=== PATIENT | male | born 1940 | race Caucasian/White ===

== ENCOUNTER → 2019-10-07 | Outpatient (CLI) | payer MEDICARE, BC ==
[~2019-10-07] MED LIST: ALTACE10 MG PO; AMLODIPINE BESYL5 MG PO; AXIRON30 MG/1.5 TOP; CARVEDILOL12.5 MG PO; COLCRYS0.6 MG PO; HYDROCODONE/ACET PO; LANSOPRAZOLE30 MG PO; LEVEMIR100 UNIT/1 SQ; MAGNESIUM OXID400 MG PO; NOVOLOG MI100 UNITS/ SQ; ULORIC40 MG PO; ULTRAM50 MG PO
--- NOTE | 2019-10-07 19:51 | Diagnostic Imaging Report ---
Parathyroid Scan with SPECT Reason for exam: Hyperparathyroidism Radiopharmaceutical: Tc-99m sestamibi 26 mCi After intravenous administration of the radiopharmaceutical, immediate and 2-hour planar images of the neck and upper chest were obtained. Tomographic images of the neck and upper chest were also obtained following the initial planar images. Distribution of tracer activity appears physiologic throughout the neck and upper chest on the planar and tomographic images. No focal areas of increased tracer accumulation are identified. On the delayed planar images, washout of tracer from the thyroid is complete with no focal areas of persistent tracer activity. Impression: No enlarged hypermetabolic parathyroid glands are identified. Signed by: Dr. Martha Hannah M.D. on 10/07/2019 7:48 PM
== END ==
LOC: NM 09:26
PROVIDERS: ATTEND Urology
DX: E21.3 Hyperparathyroidism, unspecified (principal)
CPT/HCPCS: 78071; A9500

== ENCOUNTER → 2019-11-06 | Day surgery (SDC) | payer MEDICARE, BC ==
[2019-11-04 16:08] LABS: BASOPHILS % 0.6 % (0.0-1.0); EOSINOPHILS # (AUTO) 0.3 (0.0-0.4); HEMATOCRIT 40.4 % (38.2-49.6); HEMOGLOBIN 13.1 g/dL (14.0-18.0); LYMPHOCYTES # (AUTO) 2.8 (1.0-3.2); LYMPHOCYTES % 41.8 % (18.0-39.1); MEAN CORPUSCULAR HEMOGLOBIN 29.4 pg (28-32); MEAN CORPUSCULAR HGB CONC 32.4 g/dL (31-35); MEAN CORPUSCULAR VOLUME 90.8 fL (81-99); MONOCYTES # (AUTO) 0.6 (0.2-0.8); MONOCYTES % 8.7 % (4.4-11.3); NEUTROPHILS # (AUTO) 2.9 (2.1-6.9); NEUTROPHILS % 43.4 % (38.7-80.0); PLATELET COUNT 100 x10e3/uL (140-360); RED BLOOD COUNT 4.45 x10e6/uL (4.3-5.7); RED CELL DISTRIBUTION WIDTH 13.2 % (11.7-14.4)
--- NOTE | 2019-11-04 16:18 | Diagnostic Imaging Report ---
EXAMINATION: CHEST 2 VIEWS INDICATION: Pre-operative COMPARISON: None FINDINGS: LINES/TUBES:None LUNGS:The lungs are well-inflated. No focal consolidation or pulmonary edema. PLEURA:No pleural effusion or pneumothorax. MEDIASTINUM:The cardiomediastinal silhouette appears normal in size and shape. BONES/SOFT TISSUES:No acute osseous injury. ABDOMEN:No free air under the diaphragm. IMPRESSION: No focal pneumonia or pulmonary edema. Signed by: Vijaya Soriano MD on 11/04/2019 4:15 PM
--- NOTE | 2019-11-04 16:20 | Diagnostic Imaging Report ---
Exam: KUB - 2 views Indication: Preoperative Comparison: CT abdomen pelvis of 09/04/2019 Findings: No radiographically apparent renal calculi. Nonobstructive bowel gas pattern. No free air. Status post cholecystectomy. No acute osseous injury. Phleboliths in the pelvis. Degenerative changes of the visualized spine and both hip joints. Radiopaque structure overlying the right lower abdomen just above the right iliac bone may be an intervally placed implanted device versus an object external to the patient. Impression: No radiographically apparent renal calculi. Signed by: Vijaya Soriano MD on 11/04/2019 4:17 PM
[2019-11-04 16:51] LABS: CALCIUM 9.1 mg/dL (8.4-10.2); CREATININE, SERUM 2.57 mg/dL (0.72-1.25)
[~2019-11-06] MED LIST changes: +B&O 60MG R/S 60 MG SUPP PR ONE; +CEFTRIAXONE SOD 1 GM/NS 50 ML 50 ML IV ONE; +FLOMAX0.4 MG PO; +IOPAMIDOL 610MG/1ML 300 MG/ML VIAL IV ONE; +LIDOCAINE HCL 2% LOCAL INJ 5 ML SDV VIAL INJ ONE; +ONDANSETRON HCL INJ 2MG/ML 2ML 2 MG/ML VIAL ONE; +POTASSIUM CITR10 MEQ PO; +PROPOFOL IV EMULSION 10 MG/ML 20 ML VIAL ONE; +SEVOFLURANE INHAL SOLN 250 ML PEN BTL ONE
--- OUTSIDE RECORDS SUMMARY | 2019-11-06 06:07 | XMS REPORT ---
[facility] Address Unknown Phone Unavailable Care Team Providers Care [employer] Name Role Phone EMELINA MAHER Unavailable Unavailable Problems This patient has no known problems. Allergies, Adverse Reactions, Alerts This patient has no known allergies or adverse reactions. Medications This patient has no known medications. Results Test Description Test Time Test Comments Text Results Atomic Results Result Comments ABDOMEN-1VIEW (KUB) 2019-11-04 16:15:00 [place] [address] Patient Name: CLARENCE DEJESUS MR #: [id number] : 1940 Age/Sex: 79/M Req #: [id number] Adm Physician: Ordered by: EMELINA MAHER MD Report #: [id number] Location: OR Room/Bed: Procedure: [id number] DX/ABDOMEN-1VIEW (KUB) Exam Date: 11/04/19 Exam Time: 1550 REPORT STATUS: Signed Exam: KUB - 2 views Indication: Preoperative Comparison: CT abdomen pelvis of 09/04/2019 Findings: No radiographically apparent renal calculi. Nonobstructive bowel gas pattern. No free air. Status post cholecystectomy. No acute osseous injury. Phleboliths in the pelvis. Degenerative changes of the visualized spine and both hip joints. Radiopaque structure overlying the right lower abdomen just above the right iliac bone may be an intervally placed implanted device versus an object external to the patient. Impression: No radiographically apparent renal calculi. Signed by: Chip Oden MD on 11/04/2019 4:17 PM Dictated By: CHIP ODEN MD 16 Transcribed By: ADRIANO on 11/04/191616 COPY TO: EMELINA MAHER MD CHEST 2 VIEWS 2019-11-04 16:14:00 [place] [address] Patient Name: CLARENCE DEJESUS MR #: [id number] : 1940 Age/Sex: 79/M Req #: [id number] Adm Physician: Ordered by: EMELINA MAHER MD Report #: [id number] Location: OR Room/Bed: Procedure: [id number] DX/CHEST 2 VIEWS Exam Date: 11/04/19 Exam Time: 1550 REPORT STATUS: Signed EXAMINATION: CHEST 2 VIEWS INDICATION: Pre-operative COMPARISON: None FINDINGS: LINES/TUBES:None LUNGS:The lungs are well-inflated. No focal consolidation or pulmonary edema. PLEURA:No pleural effusion or pneumothorax. MEDIASTINUM:The cardiomediastinal silhouette appears normal in size and shape. BONES/SOFT TISSUES:No acute osseous injury. ABDOMEN:No free air under the diaphragm. IMPRESSION: No focal pneumonia or pulmonary edema. Signed by: Chip Oden MD on 11/04/2019 4:15 PM Dictated By: CHIP ODEN MD 14 Transcribed By: ADRIANO on 11/04/191614 COPY TO: EMELINA MAHER MD PARATHYROID IMAGING W SPECT 2019-10-07 19:42:00 [facility] [address] [place] [address] Patient Name: CLARENCE DEJESUS MR #: [id number] : 1940 Age/Sex: 79/M Req #: [id number] Adm Physician: Ordered by: EMELINA MAHER MD Report #: [id number] Location: [place] Room/Bed: Procedure: [id number] NM/PARATHYROID IMAGING W SPECT Exam Date: Exam Time: REPORT STATUS: Signed Parathyroid Scan with SPECT Reason for exam: Hyperpara thyroidism Radiopharmaceutical: Tc-99m sestamibi 26 mCi After intravenous administration of the radiopharmaceutical, immediate and 2-hour planar images of the neck and upper chest were obtained. Tomographic images of the neck and upper chest were also obtained following the initial planar images. Distribution of tracer activity appears physiologic throughout the neck and upper chest on the planar and tomographic images. No focal areas of increased tracer accumulation are identified. On the delayed planar images, washout of tracer from the thyroid is complete with no focal areas of persistent tracer activity. Impression: No enlarged hypermetabolic parathyroid glands are identified. Signed by: Dr. William Hannah M.D. on 10/07/2019 7:48 PM Dictated By: WILLIAM HANNAH MD 47 Transcribed By: ADRIANO on 10/07/191947 COPY TO: EMELINA MAHER MD CT ABDOMEN/PELVIS WO 2019-09-04 16:09:00 [place] [address] Patient Name: CLARENCE DEJESUS MR #: [id number] : 1940 Age[facility]: 79[id number] Req #: [id number] Adm Physician: Ordered by: EMELINA MAHER MD Report #: [id number] Location: [place] Room/Bed: Procedure: [id number] CT/CT ABDOMEN/PELVIS WO Exam Date: 09/04/19 Exam Time: 1125 REPORT STATUS: Signed EXAM: CT Abdomen and Pelvis WITHOUT intravenous contrast INDICATION: Chronic kidney disease COMPARISON: Nuclear medicine renal scan earlier the same day TECHNIQUE: Abdomen and pelvis were scanned utilizing a multidetector helical scanner from the lung base to the pubic symphysis without administration of IV contrast. Coronal and sagittal reformations were obtained. IV CONTRAST: None ORAL CONTRAST: Water COMPLICATIONS: None RADIATION DOSE: Total DLP: 964 mGy*cm Dose modulation, iterative reconstruction, and/or weight based adjustment of the mA/kV was utilized to reduce the radiation dose to as low as reasonably achievable. FINDINGS: LOWER THORAX: Mild lingular subsegmental atelectasis. Right lower lobe calcified granuloma. Scattered coronary artery atherosclerotic calcifications HEPATOBILIARY: No focal liver lesions. Status post cholecystectomy. SPLEEN: No splenomegaly. PANCREAS: No focal masses or ductal dilatation. ADRENALS: No adrenal nodules. KIDNEYS/URETERS: No hydronephrosis or renal calculi on the right. The left kidney is severely atrophic. 4 mm left midpole renal calculus. No hydroureter. PELVIC ORGANS/BLADDER: Unremarkable. PERITONEUM / RETROPERITONEUM: No free air or fluid. LYMPH NODES: No lymphadenopathy. VESSELS: Moderate atherosclerotic calcifications of the nonaneurysmal abdominal aorta and major branches. GI TRACT: No abnormal bowel thickening. No bowel obstruction. Normal appendix. BONES AND SOFT TISSUES: No acute osseous injury. No suspicious lytic or blastic lesions. Minimal anterolisthesis at L4- 5. IMPRESSION: Severely atrophic left kidney. Nonobstructive left renal calculus. No renal calculus or hydronephrosis on the right. Atherosclerotic arterial calcifications including of the coronary arteries. Signed by: Chip Oden MD on 09/04/2019 4:13 PM Dictated By: CHIP ODEN MD 12 Transcribed By: ADRIANO on 09/04/191612 COPY TO: EMELINA MAHER MD RENAL SCAN W/LASIX 2019-09-04 12:43:00 [place] [address] Patient Name: CLARENCE DEJESUS MR #: [id number] : 1940 Age/Sex: 79/M Req #: [id number] Adm Physician: Ordered by: EMELINA MAHER MD Report #: [id number] Location: [place] Room/Bed: Procedure: [id number] NM/RENAL SCAN W/LASIX Exam Date: 09/04/19 Exam Time: 1015 REPORT STATUS: Signed Renal Scan with Lasix Washout Clinical information: CKD; UTI Technique: Following intravenous administration of 10 mCi of Tc-99m MAG3, dynamic images of the kidneys in the posterior projection were obtained through 40 minutes. Lasix 40 mg was administered intravenously at 10 minutes post injection of the tracer. Report: Left kidney: Perfusion of the left kidney is prompt. 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 Extraction of tracer from the blood pool by the remaining renal parenchyma is mildly decreased. Clearance of tracer from the renal parenchyma begins promptly but is not quite complete by the end of the study. The pelvicalyceal system is not dilated although the renal pelvis is slightly prominent. Physiological pooling of tracer is seen within the pelvicalyceal system. Some but minimal net drainage of tracer from the pelvicalyceal system is seen prior to administration of Lasix. Washout of tracer from the pelvicalyceal system following administration of Lasix is adequate with a T-1/2 of 14 minutes (normal less than 15 minutes). No significant stasis of tracer is seen within the left ureter. Right kidney: Perfusion to the right kidney is prompt. The right kidney has a reniform shape and is normal to mildly reduced in size. Extraction of tracer by the renal parenchyma is mildly decreased. Clearance of tracer from the renal parenchyma begins promptly but is not complete by the end of the study. The pelvicalyceal system is not dilated. Physiologic pooling of tracer is seen within the pelvicalyceal system. Drainage of tracer from the pelvicalyceal system is adequate prior to administration of Lasix. Washout of tracer from the pelvicalyceal system following administration of Lasix is rapid with a T- 1/2 of 5 minutes (normal less than 15 minutes). No significant stasis of tracer is seen within the right ureter. Differential renal function: The left kidney contributes 30% of total renal function and the right kidney cont ributes 70% (normal 43-57%). Impression: 1. 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 Mild medical renal disease is present. No hydronephrosis is present. No physiologically significant obstruction of the renal collecting system is present. 2. Mild medical renal disease is present in the right kidney. No hydronephrosis is present. No physiologically significant obstruction of the renal collecting system is present. Signed by: Dr. William Hannah M.D. on 09/04/2019 1:06 PM Dictated By: WILLIAM HANNAH MD 1302 Transcribed By: ADRIANO on 09/04/19 1305 COPY TO: EMELINA MAHER MD
[2019-11-06 11:00] VITALS: BP 138/81
--- NOTE | 2019-11-22 19:36 | Operative Report ---
DATE OF PROCEDURE: 11/06/2019 SURGEON: Kwasi Menendez MD PREOPERATIVE DIAGNOSES: 1. Left nephrolithiasis. 2. Urinary tract infections. POSTOPERATIVE DIAGNOSES: 1. Left nephrolithiasis. 2. Urinary tract infections. OPERATIONS PERFORMED: 1. Left-sided extracorporeal shockwave lithotripsy (separate procedure performed for the left nephrolithiasis). 2. Cystourethroscopy with bilateral ureteral catheterization and retrograde ureteropyelography (separate procedure performed for the urinary tract infections). 3. Interpretation of retrograde ureteropyelography. ANESTHESIA: General. CLINICAL SUMMARY: Kwasi Angel is a 79-year-old man with left renal atrophy. He has chronically enlarged left renal pelvis. He also has a stone in the left kidney. He is aware of the risks of bleeding, infection, injury to adjacent structures, need for additional procedures and the increased risk of anesthesia at his age. He understood all these risks and elected to proceed. OPERATIVE PROCEDURE IN DETAIL: Informed consent was verified. Kwasi Angel was properly identified, taken to the operating room, placed on the lithotripsy table in the supine position. Anesthesia was uneventfully begun. The patient's left stone was localized with biplanar fluoroscopy. Prior to the lithotripsy the patient had an approximately 10 second run of asystole. This was resolved by the anesthesiologist and after stabilization, the anesthesiologist felt it was safe to continue and that asystole may be a reaction to the anesthetic medications and the induction of anesthesia, which seems to now be stabilized. Therefore, since the patient is already under anesthesia and is now stable we elected to proceed. The patient's stone was localized with biplanar fluoroscopy. A total of 3000 shocks were delivered with fragmentation noted. The patient was then carefully gently repositioned in dorsal lithotomy position with all pressure points well padded. His genitalia were prepared and draped in usual sterile fashion. The cystoscope sheath with the visual obturator in place was atraumatically inserted in the patient's urethra was guided down the unremarkable distal urethra through normal sphincteric region that exhibited mild scarring, but no significant stricture. We went through the normal sphincteric region, went through the prostate bed, which was significant for visually obstructing BPH. The bladder exhibited grade 4 trabeculations with diffuse small diverticula. There was a left Hutch diverticulum present as well. A ureteral catheter was used to cannulate each ureter and retrograde ureteral pyelograms were performed. Interpretation of retrograde ureteropyelography contrast was instilled in retrograde fashion bilaterally. The right kidney was unremarkable. There were no tumors, no stones, no diverticula. Unobstructed drainage was observed. The left kidney exhibited a chronically enlarged left renal pelvis. The kidney itself seemed small. There were filling defects in the lower pole corresponding to the stone and blood clots from the lithotripsy. The kidney itself looked small. There were some filling defects in the mid pole calyx corresponding to fragmented stones as well as blood clots from the lithotripsy. Nevertheless, unobstructed drainage was observed fluoroscopically. The patient bladder was drained. Cystoscope was withdrawn. Belladonna and opium suppository were placed revealing a 40 g prostate that is smooth, nonfluctuant without any nodules. The patient was then uneventfully reversed from anesthesia and taken to recovery room in stable condition. He was observed in recovery room and was found to be stable. He was instructed to follow up with his primary care physician and have Cardiology followup. Otherwise, we will follow the patient up in the office. Kwasi Menendez MD [place]/MODL /[id number] cc: Cain Buenrostro MD
== END | disposition home or self-care (01) ==
LOC: OR 06:03
PROVIDERS: ATTEND Urology
DX: N20.0 Calculus of kidney (principal); N39.0 Urinary tract infection, site not specified; N26.1 Atrophy of kidney (terminal); I46.9 Cardiac arrest, cause unspecified; N40.1 Benign prostatic hyperplasia with lower urinary tract symptoms; N13.8 Other obstructive and reflux uropathy; N32.89 Other specified disorders of bladder; N32.3 Diverticulum of bladder; G47.33 Obstructive sleep apnea (adult) (pediatric); E66.9 Obesity, unspecified; I10 Essential (primary) hypertension; E11.9 Type 2 diabetes mellitus without complications; M10.9 Gout, unspecified; J45.909 Unspecified asthma, uncomplicated; J61 Pneumoconiosis due to asbestos and other mineral fibers; K76.0 Fatty (change of) liver, not elsewhere classified; Z88.1 Allergy status to other antibiotic agents; Z91.041 Radiographic dye allergy status; Z01.810 Encounter for preprocedural cardiovascular examination; Z01.812 Encounter for preprocedural laboratory examination; Z01.818 Encounter for other preprocedural examination; Z79.4 Long term (current) use of insulin; Z87.891 Personal history of nicotine dependence
CPT/HCPCS: 36415 ×2; 50590; 71046; 74018; 80048; 82948; 85025; 93005; C1758; J0696; J2001; J2405; J2704; Q9967

== ENCOUNTER → 2020-05-19 | Outpatient (CLI) | payer MEDICARE, BC ==
[~2020-05-19] MED LIST changes: -B&O 60MG R/S 60 MG SUPP PR ONE; -CEFTRIAXONE SOD 1 GM/NS 50 ML 50 ML IV ONE; -IOPAMIDOL 610MG/1ML 300 MG/ML VIAL IV ONE; -LIDOCAINE HCL 2% LOCAL INJ 5 ML SDV VIAL INJ ONE; -ONDANSETRON HCL INJ 2MG/ML 2ML 2 MG/ML VIAL ONE; -PROPOFOL IV EMULSION 10 MG/ML 20 ML VIAL ONE; -SEVOFLURANE INHAL SOLN 250 ML PEN BTL ONE
--- NOTE | 2020-05-19 16:46 | Diagnostic Imaging Report ---
Abdomen one view AP INDICATION: ^CALCULUS OF KIDNEY Comparison: 11/04/2011. Discussion: Very limited evaluation as a large amount of colonic stool is identified projecting over the renal shadows. No definite calculus is identified at the expected course of the ureters. Stable multiple pelvic phleboliths. Stable radiopaque structure overlying the right lower abdomen superior to the iliac bone is similar to prior exam and of uncertain etiology. Postsurgical change from cholecystectomy is noted. Negative for acute osseous abnormality. Degenerative changes of the spine and hip joints are noted. IMPRESSION: Limited evaluation. The renal shadows are obscured by overlying colonic stool. No definite radiographically apparent renal calculi are noted. Signed by: Jeffrey Mayen MD on 05/19/2020 4:43 PM
== END ==
LOC: RAD 15:59
PROVIDERS: ATTEND Urology
DX: N20.0 Calculus of kidney (principal)
CPT/HCPCS: 74018

== ENCOUNTER → 2020-11-22 | Outpatient (CLI) | payer MEDICARE, BC | LOC: US 10:36 | PROVIDERS: ATTEND Urology | DX: N20.0 Calculus of kidney (principal) | CPT/HCPCS: 76770 ==

== ENCOUNTER 2021-03-01 11:34 | Inpatient (IN) | payer MEDICARE, BC ==
[~2021-03-01] VITALS: Ht 185.4 cm; Wt 117.9 kg
[2021-03-01] MEDS ORDERED: ASPIRIN81 MG PO (11:49)
[2021-03-01] MEDS ORDERED: SODIUM CHLORIDE 0.9% 500ML 500 ML IV ONE (12:00)
[2021-03-01] MEDS ORDERED: LANSOPRAZOLE30 MG PO (12:03)
[2021-03-01] MEDS ORDERED: AMLODIPINE BESYL5 MG PO (12:03)
[2021-03-01] MEDS ORDERED: POTASSIUM CITR10 MEQ PO (12:03)
[2021-03-01] MEDS ORDERED: PLAVIX75 MG PO (12:03)
[2021-03-01] MEDS ORDERED: LIPITOR20 MG PO (12:03)
[2021-03-01] MEDS ORDERED: ULORIC40 MG PO (12:03)
[2021-03-01] MEDS ORDERED: FINASTERIDE5 MG PO (12:03)
[2021-03-01] MEDS ORDERED: NOVOLOG100 UNIT/1 SC (12:03)
[2021-03-01] MEDS ORDERED: LEVEMIR FL100 UNIT/1 SC (12:03)
[2021-03-01] MEDS ORDERED: MAGNESIUM OXID400 MG PO (12:03)
[2021-03-01] MEDS ORDERED: CARVEDILOL12.5 MG PO (12:03)
[2021-03-01] MEDS ORDERED: COLCRYS0.6 MG PO (12:03)
[2021-03-01 12:19] LABS: BASOPHILS # (AUTO) 0.1 (0.0-0.1); BASOPHILS % 0.8 % (0.0-1.0); EOSINOPHILS # (AUTO) 0.2 (0.0-0.4); EOSINOPHILS % 2.3 % (0.0-6.0); HEMATOCRIT 39.3 % (38.2-49.6); HEMOGLOBIN 12.3 g/dL (14.0-18.0); LYMPHOCYTES # (AUTO) 2.3 (1.0-3.2); LYMPHOCYTES % 34.7 % (18.0-39.1); MEAN CORPUSCULAR HEMOGLOBIN 28.6 pg (28-32); MEAN CORPUSCULAR HGB CONC 31.3 g/dL (31-35); MEAN CORPUSCULAR VOLUME 91.4 fL (81-99); MONOCYTES # (AUTO) 0.6 (0.2-0.8); MONOCYTES % 9.7 % (4.4-11.3); NEUTROPHILS # (AUTO) 3.4 (2.1-6.9); PLATELET COUNT 114 x10e3/uL (140-360); RED CELL DISTRIBUTION WIDTH 15.1 % (11.7-14.4)
[2021-03-01 12:27] LABS: CLARITY,URINE CLOUDY (CLEAR); COLOR,URINE YELLOW (YELLOW); KETONES,URINE NEGATIVE (NEGATIVE); LEUKOCYTE ESTERASE ,URINE LARGE (NEGATIVE); NITRITE,URINE NEGATIVE (NEGATIVE); PROTEIN,URINE DIPSTICK 2+ (NEGATIVE); URINE UROBILINOGEN 0.2 mg/dL (0.2 - 1)
[2021-03-01 12:41] LABS: ALBUMIN 3.4 g/dL (3.5-5.0); ANION GAP 17.2 mmol/L (8-16); BACTERIA,URINE MANY /HPF; CALCIUM 8.6 mg/dL (8.4-10.2); CREATININE, SERUM 3.9 mg/dL (0.72-1.25); MAGNESIUM 1.8 MG/DL (1.3-2.1); POTASSIUM 5.2 mmol/L (3.5-5.1); RBC,URINE 0-5 /HPF (0-5); WBC,URINE (MAN) >50 /HPF (0-5)
[2021-03-01 12:50] LABS: CREATINE KINASE MB 2.9 ng/mL (0-5.0)
[2021-03-01] MEDS: PIPERACILLIN/TAZOBACTAM 2.25 GM in SODIUM CHLORIDE 0.9% 50ML 50 ML IV SCH ×2 (13:26→21:26)
[2021-03-01] MEDS ORDERED: ONDANSETRON HCL INJ 2MG/ML 2ML 2 MG/ML VIAL IV PRN (13:30)
[2021-03-01 14:38] VITALS: BP 151/80
[2021-03-01] MEDS: SODIUM CHLORIDE 0.9% 1000ML 1,000 ML IV SCH (16:33)
[2021-03-01 16:47] VITALS: BP 167/78
[2021-03-01 19:39] LABS: CREATINE KINASE MB 3.6 ng/mL (0-5.0)
[2021-03-01 20:31] VITALS: BP 152/79
[2021-03-01] MEDS: CARVEDILOL 12.5 MG TAB PO SCH (21:25)
[2021-03-01] MEDS: COLCHICINE 0.6 MG TAB PO SCH (21:25)
[2021-03-01] MEDS: PANTOPRAZOLE SOD 40 MG TABEC PO SCH (21:26)
[2021-03-01] MEDS: INSULIN GLARGINE 100 UNITS/ML VIAL SC SCH (21:30)
[2021-03-01 23:53] VITALS: BP 143/75
[2021-03-02] VITALS (9 sets, daily range): BP systolic 147–160; BP diastolic 73–96
[2021-03-02] MEDS ORDERED: ASPIRIN 81 MG CHEW TAB PO PRN (01:00)
[2021-03-02] MEDS: PIPERACILLIN/TAZOBACTAM 2.25 GM in SODIUM CHLORIDE 0.9% 50ML 50 ML IV SCH ×3 (05:41→21:00)
[2021-03-02] MEDS: SODIUM CHLORIDE 0.9% 1000ML 1,000 ML IV SCH ×2 (05:41→17:20)
[2021-03-02 05:52] LABS: BASOPHILS % 0.6 % (0.0-1.0); EOSINOPHILS # (AUTO) 0.2 (0.0-0.4); EOSINOPHILS % 3.9 % (0.0-6.0); HEMATOCRIT 36.4 % (38.2-49.6); HEMOGLOBIN 11.4 g/dL (14.0-18.0); LYMPHOCYTES # (AUTO) 2.2 (1.0-3.2); LYMPHOCYTES % 34.7 % (18.0-39.1); MEAN CORPUSCULAR HEMOGLOBIN 28.9 pg (28-32); MEAN CORPUSCULAR HGB CONC 31.3 g/dL (31-35); MEAN CORPUSCULAR VOLUME 92.2 fL (81-99); MONOCYTES # (AUTO) 0.7 (0.2-0.8); NEUTROPHILS % 48.3 % (38.7-80.0); PLATELET COUNT 106 x10e3/uL (140-360); RED BLOOD COUNT 3.95 x10e6/uL (4.3-5.7); RED CELL DISTRIBUTION WIDTH 14.9 % (11.7-14.4)
[2021-03-02 06:27] LABS: ALBUMIN/GLOBULIN RATIO 0.9 (0.8-2.0); ANION GAP 16.2 mmol/L (8-16); CALCIUM 8.4 mg/dL (8.4-10.2); CREATININE, SERUM 3.6 mg/dL (0.72-1.25); POTASSIUM 5.2 mmol/L (3.5-5.1)
[2021-03-02 06:54] LABS: CREATINE KINASE MB 2.8 ng/mL (0-5.0)
[2021-03-02] MEDS: INSULIN LISPRO 100 UNIT/1 ML 3ML VIAL SQ SCH ×3 (08:30→16:30)
[2021-03-02] MEDS: CARVEDILOL 12.5 MG TAB PO SCH ×2 (08:43→21:05)
[2021-03-02] MEDS: COLCHICINE 0.6 MG TAB PO SCH ×2 (08:43→21:05)
[2021-03-02] MEDS: AMLODIPINE BESYLATE 5 MG TAB PO SCH (08:44)
[2021-03-02] MEDS: FINASTERIDE 5 MG TAB PO SCH (08:44)
[2021-03-02] MEDS: CLOPIDOGREL BISULFATE 75 MG TAB PO SCH (08:44)
[2021-03-02] MEDS: TAMSULOSIN HCL 0.4 MG CAP PO SCH ×2 (08:44→17:21)
[2021-03-02] MEDS: MAGNESIUM OXIDE 400 MG TAB PO SCH (08:44)
[2021-03-02] MEDS: POTASSIUM CITRATE ER 10 MEQ TAB PO SCH ×2 (09:00→19:29)
[2021-03-02] MEDS ORDERED: POTASSIUM CITRATE ER 10 MEQ TAB PO SCH (09:00)
[2021-03-02] MEDS ORDERED: ASPIRIN 81 MG CHEW TAB PO SCH (09:00)
[2021-03-02] MEDS: FEBUXOSTAT 80 MG TAB PO SCH (12:40)
[2021-03-02] MEDS: ATORVASTATIN 20 MG TAB PO SCH (12:40)
[2021-03-02] MEDS: PANTOPRAZOLE SOD 40 MG TABEC PO SCH (21:05)
[2021-03-02] MEDS: INSULIN GLARGINE 100 UNITS/ML VIAL SC SCH (21:08)
[2021-03-03] VITALS (8 sets, daily range): BP systolic 132–167; BP diastolic 65–97
[2021-03-03 05:21] LABS: BASOPHILS % 0.5 % (0.0-1.0); EOSINOPHILS # (AUTO) 0.3 (0.0-0.4); EOSINOPHILS % 4.1 % (0.0-6.0); HEMATOCRIT 37.7 % (38.2-49.6); HEMOGLOBIN 11.6 g/dL (14.0-18.0); LYMPHOCYTES # (AUTO) 1.9 (1.0-3.2); LYMPHOCYTES % 30.8 % (18.0-39.1); MEAN CORPUSCULAR HEMOGLOBIN 28.6 pg (28-32); MEAN CORPUSCULAR HGB CONC 30.8 g/dL (31-35); MEAN CORPUSCULAR VOLUME 93.1 fL (81-99); MONOCYTES # (AUTO) 0.7 (0.2-0.8); MONOCYTES % 10.6 % (4.4-11.3); NEUTROPHILS # (AUTO) 3.3 (2.1-6.9); NEUTROPHILS % 53.5 % (38.7-80.0); PLATELET COUNT 107 x10e3/uL (140-360); RED BLOOD COUNT 4.05 x10e6/uL (4.3-5.7); RED CELL DISTRIBUTION WIDTH 15.1 % (11.7-14.4)
[2021-03-03] MEDS: PIPERACILLIN/TAZOBACTAM 2.25 GM in SODIUM CHLORIDE 0.9% 50ML 50 ML IV SCH ×3 (05:27→21:25)
[2021-03-03] MEDS: SODIUM CHLORIDE 0.9% 1000ML 1,000 ML IV SCH ×2 (05:30→18:12)
[2021-03-03 06:15] LABS: ALBUMIN 2.9 g/dL (3.5-5.0); ALBUMIN/GLOBULIN RATIO 0.9 (0.8-2.0); CALCIUM 8.5 mg/dL (8.4-10.2); CREATININE, SERUM 3.05 mg/dL (0.72-1.25)
[2021-03-03] MEDS: INSULIN LISPRO 100 UNIT/1 ML 3ML VIAL SQ SCH ×4 (07:44→19:45)
[2021-03-03] MEDS: ATORVASTATIN 20 MG TAB PO SCH (09:38)
[2021-03-03] MEDS: COLCHICINE 0.6 MG TAB PO SCH ×2 (09:38→21:25)
[2021-03-03] MEDS: TAMSULOSIN HCL 0.4 MG CAP PO SCH ×2 (09:38→16:30)
[2021-03-03] MEDS: FEBUXOSTAT 80 MG TAB PO SCH (09:39)
[2021-03-03] MEDS: POTASSIUM CITRATE ER 10 MEQ TAB PO SCH ×2 (09:39→21:24)
[2021-03-03] MEDS: AMLODIPINE BESYLATE 5 MG TAB PO SCH (09:39)
[2021-03-03] MEDS: CLOPIDOGREL BISULFATE 75 MG TAB PO SCH (09:39)
[2021-03-03] MEDS: FINASTERIDE 5 MG TAB PO SCH (09:39)
[2021-03-03] MEDS: MAGNESIUM OXIDE 400 MG TAB PO SCH (09:39)
[2021-03-03] MEDS: CARVEDILOL 12.5 MG TAB PO SCH ×2 (09:40→21:24)
[2021-03-03] MEDS ORDERED: DEXTROSE 50% SYRINGE 50 ML IV ONE (12:09)
[2021-03-03] MEDS ORDERED: DEXTROSE 50% SYRINGE 50 ML IV PRN (12:15)
[2021-03-03] MEDS: INSULIN GLARGINE 100 UNITS/ML VIAL SC SCH (21:00)
[2021-03-03] MEDS: PANTOPRAZOLE SOD 40 MG TABEC PO SCH (21:24)
[2021-03-04 00:24] VITALS: BP 164/96
[2021-03-04] MEDS: PIPERACILLIN/TAZOBACTAM 2.25 GM in SODIUM CHLORIDE 0.9% 50ML 50 ML IV SCH (05:00)
[2021-03-04 05:21] VITALS: BP 142/73
[2021-03-04] MEDS: INSULIN LISPRO 100 UNIT/1 ML 3ML VIAL SQ SCH (07:30)
[2021-03-04] MEDS ORDERED: MACROBID 100 M100 MG PO (07:41)
[2021-03-04 07:59] VITALS: BP 138/77
[2021-03-04] MEDS: SODIUM CHLORIDE 0.9% 1000ML 1,000 ML IV SCH (08:10)
[2021-03-04 08:16] VITALS: BP 138/77
== END 2021-03-04 08:41 | disposition home or self-care (01) | DRG 872 ==
LOC: ER 12:35 → ERHOLD 13:23 → MED/SURG 14:13 → MED/SURG2 03-03 13:14
PROVIDERS: ADMIT Internal Medicine; ATTEND Internal Medicine
DX: A41.9 Sepsis, unspecified organism (principal); N39.0 Urinary tract infection, site not specified; N18.4 Chronic kidney disease, stage 4 (severe); N17.9 Acute kidney failure, unspecified; E11.22 Type 2 diabetes mellitus with diabetic chronic kidney disease; I12.9 Hypertensive chronic kidney disease with stage 1 through stage 4 chronic kidney disease, or unspecified chronic kidney disease; N18.30 Chronic kidney disease, stage 3 unspecified; N40.0 Benign prostatic hyperplasia without lower urinary tract symptoms; B96.20 Unspecified Escherichia coli [E. coli] as the cause of diseases classified elsewhere; G47.33 Obstructive sleep apnea (adult) (pediatric); N40.1 Benign prostatic hyperplasia with lower urinary tract symptoms; R35.1 Nocturia; E66.9 Obesity, unspecified; Z68.34 Body mass index [BMI] 34.0-34.9, adult
CPT/HCPCS: 36415; 80053; 81001; 82550; 82553; 82948; 83735; 84484; 85025; 87086; 87186; 93005; 99284; J1815; J2543; J7030; J7040; J7799

== ENCOUNTER 2021-05-01 14:01 | Inpatient (IN) | payer MEDICARE, BC ==
[~2021-05-01] VITALS: Ht 182.9 cm; Wt 116.1 kg
[~2021-05-01 14:01] MED LIST changes: +ASPIRIN81 MG PO; +FINASTERIDE5 MG PO; +LEVEMIR FL100 UNIT/1 SC; +LIPITOR20 MG PO; +MACROBID 100 M100 MG PO; +NOVOLOG100 UNIT/1 SC; +PLAVIX75 MG PO
[2021-05-01 14:58] LABS: BASOPHILS % 0.1 % (0.0-1.0); HEMATOCRIT 40.1 % (38.2-49.6); HEMOGLOBIN 13.1 g/dL (14.0-18.0); LYMPHOCYTES # (AUTO) 0.5 (1.0-3.2); LYMPHOCYTES % 4.2 % (18.0-39.1); MEAN CORPUSCULAR HEMOGLOBIN 28.4 pg (28-32); MEAN CORPUSCULAR HGB CONC 32.7 g/dL (31-35); MONOCYTES # (AUTO) 1.1 (0.2-0.8); MONOCYTES % 9.3 % (4.4-11.3); NEUTROPHILS # (AUTO) 9.9 (2.1-6.9); NEUTROPHILS % 85.3 % (38.7-80.0); PLATELET COUNT 103 x10e3/uL (140-360); RED BLOOD COUNT 4.61 x10e6/uL (4.3-5.7); RED CELL DISTRIBUTION WIDTH 14.8 % (11.7-14.4)
[2021-05-01 15:12] LABS: ANION GAP 18.3 mmol/L (8-16); CALCIUM 9.6 mg/dL (8.4-10.2); CREATININE, SERUM 4.39 mg/dL (0.72-1.25)
[2021-05-01 15:15] LABS: POTASSIUM 6.3 mmol/L (3.5-5.1)
[2021-05-01] MEDS ORDERED: SODIUM BICARBONATE 8.4% INJ 50 ML SYR IV ONE (15:17)
[2021-05-01] MEDS ORDERED: CALCIUM GLUCONATE 10% INJ 9.3 MEQ in SODIUM CHLORIDE 0.9% 100 ML 100 ML IV ONE (15:30)
[2021-05-01] MEDS ORDERED: SODIUM CHLORIDE 0.9% 1000ML 1,000 ML IV SCH (15:30)
[2021-05-01] MEDS ORDERED: INSULIN REGULAR, HUMAN 100 UNIT/1 ML SQ ONE (15:45)
[2021-05-01 15:48] LABS: CLARITY,URINE SL CLOUDY (CLEAR); COLOR,URINE YELLOW (YELLOW); KETONES,URINE NEGATIVE (NEGATIVE); LEUKOCYTE ESTERASE ,URINE TRACE (NEGATIVE); NITRITE,URINE POSITIVE (NEGATIVE); PROTEIN,URINE DIPSTICK 1+ (NEGATIVE); URINE UROBILINOGEN 0.2 mg/dL (0.2 - 1)
[2021-05-01] MEDS ORDERED: CALCIUM GLUCONATE 10% INJ 0.465 MEQ/ML VIAL ONE (15:51)
[2021-05-01] MEDS ORDERED: SODIUM CHLORIDE 0.9% 100 ML ONE (15:52)
[2021-05-01 16:02] LABS: BACTERIA,URINE MANY /HPF; RBC,URINE 0-5 /HPF (0-5)
[2021-05-01] MEDS ORDERED: CEFTRIAXONE 1 GM VIAL IV ONE (16:15)
[2021-05-01] MEDS: SODIUM CHLORIDE 0.9% 1000ML 1,000 ML IV SCH ×2 (16:15→23:57)
[2021-05-01] MEDS ORDERED: CEFTRIAXONE 1 GM in SODIUM CHLORIDE 0.9% 50ML 50 ML IV ONE (16:30)
[2021-05-01] MEDS ORDERED: COREG6.25 MG PO (18:08)
[2021-05-01] MEDS ORDERED: SODIUM BICARBONATE 8.4% 50 ML VIAL IV STA (21:19)
[2021-05-01] MEDS ORDERED: DEXTROSE 50% SYRINGE 50 ML IV STA (21:19)
[2021-05-01] MEDS ORDERED: CALCIUM GLUCONATE 10% INJ 4.65 MEQ in SODIUM CHLORIDE 0.9% 50ML 50 ML IV ONE (21:30)
[2021-05-01] MEDS ORDERED: INSULIN REGULAR, HUMAN 100 UNIT/1 ML IV ONE (21:30)
[2021-05-01] MEDS ORDERED: SOD POLYSTYRENE SULFONATE SUSP 15 GM/60 ML BTL PO ONE (21:30)
[2021-05-01] MEDS ORDERED: SODIUM BICARBONATE 8.4% SYRING 50 ML ONE (22:02)
[2021-05-02 03:44] LABS: ALBUMIN 2.2 g/dL (3.5-5.0); ALBUMIN/GLOBULIN RATIO 0.4 (0.8-2.0); ANION GAP 18.9 mmol/L (8-16); CALCIUM 9.1 mg/dL (8.4-10.2); CREATININE, SERUM 3.59 mg/dL (0.72-1.25)
[2021-05-02 03:47] LABS: POTASSIUM 5.9 mmol/L (3.5-5.1)
[2021-05-02 06:39] LABS: BASOPHILS % 0.1 % (0.0-1.0); HEMATOCRIT 37.9 % (38.2-49.6); HEMOGLOBIN 12.2 g/dL (14.0-18.0); LYMPHOCYTES # (AUTO) 1.2 (1.0-3.2); LYMPHOCYTES % 10.5 % (18.0-39.1); MEAN CORPUSCULAR HEMOGLOBIN 28.2 pg (28-32); MEAN CORPUSCULAR HGB CONC 32.2 g/dL (31-35); MEAN CORPUSCULAR VOLUME 87.7 fL (81-99); MONOCYTES # (AUTO) 1.4 (0.2-0.8); NEUTROPHILS # (AUTO) 8.3 (2.1-6.9); NEUTROPHILS % 75.1 % (38.7-80.0); PLATELET COUNT 169 x10e3/uL (140-360); RED BLOOD COUNT 4.32 x10e6/uL (4.3-5.7); RED CELL DISTRIBUTION WIDTH 14.6 % (11.7-14.4)
[2021-05-02 07:09] LABS: ANION GAP 15.8 mmol/L (8-16); CREATININE, SERUM 3.42 mg/dL (0.72-1.25); POTASSIUM 5.8 mmol/L (3.5-5.1)
[2021-05-02 07:23] LABS: ALBUMIN 2.1 g/dL (3.5-5.0); ALBUMIN/GLOBULIN RATIO 0.4 (0.8-2.0); MAGNESIUM 1.9 MG/DL (1.3-2.1)
[2021-05-02] MEDS: CEFEPIME 1 GM in SODIUM CHLORIDE 0.9% 50ML 50 ML IV SCH ×2 (08:59→21:50)
[2021-05-02] MEDS: ASPIRIN 81 MG CHEW TAB PO SCH (08:59)
[2021-05-02] MEDS: FINASTERIDE 5 MG TAB PO SCH (09:00)
[2021-05-02] MEDS: ATORVASTATIN 20 MG TAB PO SCH (09:00)
[2021-05-02] MEDS ORDERED: COLCHICINE 0.6 MG TAB PO SCH (09:00)
[2021-05-02] MEDS: AMLODIPINE BESYLATE 5 MG TAB PO SCH (09:00)
[2021-05-02] MEDS: FEBUXOSTAT 80 MG TAB PO SCH (09:00)
[2021-05-02] MEDS: TAMSULOSIN HCL 0.4 MG CAP PO SCH ×2 (09:00→17:11)
[2021-05-02] MEDS: CARVEDILOL 3.125 MG TAB PO SCH ×2 (09:00→17:11)
[2021-05-02] MEDS: SODIUM BICARBONATE 650 MG TAB PO SCH ×2 (09:00→17:11)
[2021-05-02] MEDS ORDERED: SOD POLYSTYRENE SULFONATE SUSP 15 GM/60 ML BTL PO ONE (12:00)
[2021-05-02] MEDS ORDERED: LACTULOSE SYRUP 20 GM/30 ML UDC PO ONE (12:00)
[2021-05-02] MEDS: DEXTROSE 5%/0.45% SOD CHL 1,000 ML IV SCH ×2 (12:13→22:28)
[2021-05-02] MEDS: METHYLPREDNISOLONE SOD SUCC 125 MG/2ML VIAL IV SCH ×2 (13:07→21:50)
[2021-05-02 16:05] VITALS: BP 160/71
[2021-05-02] MEDS ORDERED: DEXTROSE 50% SYRINGE 50 ML IV PRN ×2 (17:30→22:15)
[2021-05-02 19:02] VITALS: BP 160/71
[2021-05-02 19:11] VITALS: BP 160/71
[2021-05-02 20:00] VITALS: BP 147/70
[2021-05-02 21:00] VITALS: BP 147/70
[2021-05-02] MEDS ORDERED: INSULIN LISPRO 100 UNIT/1 ML 3ML VIAL SQ SCH (21:00)
[2021-05-03] VITALS (8 sets, daily range): BP systolic 148–160; BP diastolic 62–86
[2021-05-03 05:48] LABS: BASOPHILS % 0.1 % (0.0-1.0); HEMATOCRIT 38.1 % (38.2-49.6); LYMPHOCYTES # (AUTO) 0.4 (1.0-3.2); LYMPHOCYTES % 4.4 % (18.0-39.1); MEAN CORPUSCULAR HEMOGLOBIN 28.1 pg (28-32); MEAN CORPUSCULAR HGB CONC 31.5 g/dL (31-35); MEAN CORPUSCULAR VOLUME 89.2 fL (81-99); MONOCYTES # (AUTO) 0.3 (0.2-0.8); MONOCYTES % 3.4 % (4.4-11.3); NEUTROPHILS # (AUTO) 8.7 (2.1-6.9); NEUTROPHILS % 91.3 % (38.7-80.0); PLATELET COUNT 223 x10e3/uL (140-360); RED BLOOD COUNT 4.27 x10e6/uL (4.3-5.7); RED CELL DISTRIBUTION WIDTH 14.7 % (11.7-14.4)
[2021-05-03 06:28] LABS: ALBUMIN/GLOBULIN RATIO 0.4 (0.8-2.0); ANION GAP 13.2 mmol/L (8-16); CALCIUM 8.3 mg/dL (8.4-10.2); CREATININE, SERUM 3.15 mg/dL (0.72-1.25)
[2021-05-03 06:45] LABS: POTASSIUM 6.2 mmol/L (3.5-5.1)
[2021-05-03] MEDS: INSULIN LISPRO 100 UNIT/1 ML 3ML VIAL SQ SCH ×5 (06:58→20:56)
[2021-05-03] MEDS: SODIUM BICARBONATE 650 MG TAB PO SCH ×2 (09:18→16:34)
[2021-05-03] MEDS: FINASTERIDE 5 MG TAB PO SCH (09:18)
[2021-05-03] MEDS: METHYLPREDNISOLONE SOD SUCC 125 MG/2ML VIAL IV SCH (09:18)
[2021-05-03] MEDS: ASPIRIN 81 MG CHEW TAB PO SCH (09:18)
[2021-05-03] MEDS: AMLODIPINE BESYLATE 5 MG TAB PO SCH (09:18)
[2021-05-03] MEDS: FEBUXOSTAT 80 MG TAB PO SCH (09:18)
[2021-05-03] MEDS: CARVEDILOL 3.125 MG TAB PO SCH ×2 (09:18→16:35)
[2021-05-03] MEDS: ATORVASTATIN 20 MG TAB PO SCH (09:18)
[2021-05-03] MEDS: TAMSULOSIN HCL 0.4 MG CAP PO SCH ×2 (09:18→16:34)
[2021-05-03] MEDS: CEFEPIME 1 GM in SODIUM CHLORIDE 0.9% 50ML 50 ML IV SCH ×2 (09:18→20:59)
[2021-05-03] MEDS ORDERED: SODIUM CHLORIDE 0.9% 1000ML 1,000 ML ONE (11:12)
[2021-05-03] MEDS: SODIUM CHLORIDE 0.9% 1000ML 1,000 ML IV SCH ×2 (11:16→20:59)
[2021-05-03] MEDS ORDERED: SOD POLYSTYRENE SULFONATE SUSP 15 GM/60 ML BTL PO ONE (11:30)
[2021-05-03] MEDS ORDERED: LACTULOSE SYRUP 20 GM/30 ML UDC PO ONE (11:30)
[2021-05-03 14:55] LABS: FREE T4 (FREE THYROXINE) 0.85 ng/dL (0.8-1.8); THYROID STIMULATING HORMONE 0.436 uIU/mL (0.350-4.940)
[2021-05-03 17:54] LABS: BODY FLUID APPEARANCE TURBID; BODY FLUID COLOR STRAW; BODY FLUID TYPE SYNOVIAL
[2021-05-03 17:55] LABS: RBC,BODY FLUID 64000 cells/uL; WBC,BODY FLUID 107889 cells/uL
[2021-05-03 18:44] LABS: LYMPHOCYTES,BODY FLUID 3 %; MONO/MACROPHG,BODY FLUID 39 %; NEUTROPHILS,BODY FLUID 58 %
[2021-05-03] MEDS: METHYLPREDNISOLONE SOD SUCC 40 MG/ML VIAL 1ML IV SCH (20:59)
[2021-05-03] MEDS ORDERED: INSULIN GLARGINE 100 UNITS/ML VIAL SQ SCH ×2 (21:00)
[2021-05-04] VITALS (8 sets, daily range): BP systolic 134–188; BP diastolic 65–79
[2021-05-04] MEDS: INSULIN LISPRO 100 UNIT/1 ML 3ML VIAL SQ SCH ×7 (05:37→21:34)
[2021-05-04 06:22] LABS: ALBUMIN 1.9 g/dL (3.5-5.0); ALBUMIN/GLOBULIN RATIO 0.4 (0.8-2.0); ANION GAP 14.6 mmol/L (8-16); CALCIUM 8.4 mg/dL (8.4-10.2); CREATININE, SERUM 2.37 mg/dL (0.72-1.25); MAGNESIUM 1.6 MG/DL (1.3-2.1); POTASSIUM 4.6 mmol/L (3.5-5.1)
[2021-05-04 07:25] LABS: HEMATOCRIT 35.8 % (38.2-49.6); HEMOGLOBIN 11.5 g/dL (14.0-18.0); LYMPHOCYTES # (AUTO) 0.5 (1.0-3.2); LYMPHOCYTES % 4.8 % (18.0-39.1); MEAN CORPUSCULAR HEMOGLOBIN 28.3 pg (28-32); MEAN CORPUSCULAR HGB CONC 32.1 g/dL (31-35); MEAN CORPUSCULAR VOLUME 88.2 fL (81-99); MONOCYTES # (AUTO) 0.8 (0.2-0.8); MONOCYTES % 7.3 % (4.4-11.3); NEUTROPHILS # (AUTO) 9.6 (2.1-6.9); NEUTROPHILS % 87.1 % (38.7-80.0); PLATELET COUNT 216 x10e3/uL (140-360); RED BLOOD COUNT 4.06 x10e6/uL (4.3-5.7); RED CELL DISTRIBUTION WIDTH 14.3 % (11.7-14.4)
[2021-05-04] MEDS: SODIUM CHLORIDE 0.9% 1000ML 1,000 ML IV SCH ×3 (07:30→19:00)
[2021-05-04] MEDS ORDERED: ONDANSETRON HCL INJ 2MG/ML 2ML 2 MG/ML VIAL IV PRN (08:30)
[2021-05-04] MEDS ORDERED: DIPHENHYDRAMINE HCL INJ 50 MG/ML VIAL IV PRN (08:30)
[2021-05-04] MEDS ORDERED: ACETAMINOPHEN 650 MG SUPP PR PRN (08:30)
[2021-05-04] MEDS ORDERED: HYDROCODONE/APAP 7.5MG-325MG 1 EA TAB PO PRN (08:30)
[2021-05-04] MEDS ORDERED: DOCUSATE SODIUM 100 MG CAP PO PRN (08:30)
[2021-05-04] MEDS ORDERED: ZOLPIDEM TARTRATE 5 MG TAB PO PRN (08:30)
[2021-05-04] MEDS ORDERED: MEPERIDINE HCL INJ 25 MG/ML VIAL ONE (09:01)
[2021-05-04] MEDS: METHYLPREDNISOLONE SOD SUCC 40 MG/ML VIAL 1ML IV SCH ×2 (10:14→20:35)
[2021-05-04] MEDS: ASPIRIN 81 MG CHEW TAB PO SCH (10:14)
[2021-05-04] MEDS: CELECOXIB 200 MG CAP PO SCH ×2 (10:14→16:45)
[2021-05-04] MEDS: AMLODIPINE BESYLATE 5 MG TAB PO SCH (10:17)
[2021-05-04] MEDS: TAMSULOSIN HCL 0.4 MG CAP PO SCH ×2 (10:17→16:46)
[2021-05-04] MEDS: FEBUXOSTAT 80 MG TAB PO SCH (10:17)
[2021-05-04] MEDS: FINASTERIDE 5 MG TAB PO SCH (10:17)
[2021-05-04] MEDS: CEFEPIME 1 GM in SODIUM CHLORIDE 0.9% 50ML 50 ML IV SCH ×2 (10:31→20:35)
[2021-05-04] MEDS: SODIUM BICARBONATE 650 MG TAB PO SCH ×2 (10:33→16:46)
[2021-05-04] MEDS: CARVEDILOL 3.125 MG TAB PO SCH ×2 (10:33→16:46)
[2021-05-04] MEDS: ATORVASTATIN 20 MG TAB PO SCH (10:33)
[2021-05-04] MEDS ORDERED: Vancomycin IV 1 GM in SODIUM CHLORIDE 0.9% 250ML 250 ML IV ONE (11:00)
[2021-05-04] MEDS: KETOROLAC TROMETHAMINE 30 MG/ML VIAL IV PRN ×2 (11:36→12:35)
[2021-05-04] MEDS ORDERED: POVIDONE IODINE 0.05% 0.05 % ML PO ONE (16:43)
[2021-05-04] MEDS ORDERED: PROPOFOL IV EMULSION 10 MG/ML 20 ML VIAL ONE (16:43)
[2021-05-04] MEDS ORDERED: LIDOCAINE HCL 2% LOCAL INJ 5 ML SDV VIAL INJ ONE (16:43)
[2021-05-04] MEDS ORDERED: SEVOFLURANE INHAL SOLN 250 ML PEN BTL ONE (16:43)
[2021-05-04] MEDS ORDERED: INSULIN GLARGINE 100 UNITS/ML VIAL SQ SCH (21:00)
[2021-05-04] MEDS ORDERED: CEFTRIAXONE 1 GM in SODIUM CHLORIDE 0.9% 50ML 50 ML IV SCH (21:00)
[2021-05-05] VITALS (8 sets, daily range): BP systolic 139–166; BP diastolic 66–80
[2021-05-05] MEDS: SODIUM CHLORIDE 0.9% 1000ML 1,000 ML IV SCH ×2 (04:28→15:23)
[2021-05-05 06:08] LABS: ALBUMIN 1.7 g/dL (3.5-5.0); ALBUMIN/GLOBULIN RATIO 0.4 (0.8-2.0); ANION GAP 14.6 mmol/L (8-16); CALCIUM 7.8 mg/dL (8.4-10.2); CREATININE, SERUM 2.07 mg/dL (0.72-1.25); POTASSIUM 4.6 mmol/L (3.5-5.1)
[2021-05-05] MEDS: INSULIN LISPRO 100 UNIT/1 ML 3ML VIAL SQ SCH ×7 (07:46→20:52)
[2021-05-05] MEDS: ATORVASTATIN 20 MG TAB PO SCH (08:14)
[2021-05-05] MEDS: CARVEDILOL 3.125 MG TAB PO SCH ×2 (08:14→16:56)
[2021-05-05] MEDS: FEBUXOSTAT 80 MG TAB PO SCH (08:14)
[2021-05-05] MEDS: SODIUM BICARBONATE 650 MG TAB PO SCH ×2 (08:14→16:56)
[2021-05-05] MEDS: CEFEPIME 1 GM in SODIUM CHLORIDE 0.9% 50ML 50 ML IV SCH (08:14)
[2021-05-05] MEDS: METHYLPREDNISOLONE SOD SUCC 40 MG/ML VIAL 1ML IV SCH ×2 (08:14→20:51)
[2021-05-05] MEDS: CELECOXIB 200 MG CAP PO SCH ×2 (08:14→16:56)
[2021-05-05] MEDS: AMLODIPINE BESYLATE 5 MG TAB PO SCH (08:14)
[2021-05-05] MEDS: TAMSULOSIN HCL 0.4 MG CAP PO SCH ×2 (08:14→16:56)
[2021-05-05] MEDS: FINASTERIDE 5 MG TAB PO SCH (08:14)
[2021-05-05] MEDS: ASPIRIN 81 MG CHEW TAB PO SCH (08:14)
[2021-05-05] MEDS ORDERED: ACETAMINOPHEN 1000 MG/100 ML IV PRN (08:30)
[2021-05-05] MEDS: HYDROCODONE/APAP 5MG-325MG TAB PO PRN (08:35)
[2021-05-05] MEDS ORDERED: CEFTAZIDIME 1 GM VIAL IV SCH (14:30)
[2021-05-05] MEDS ORDERED: SODIUM CHLORIDE 0.9% IV SCH (15:00)
[2021-05-05] MEDS ORDERED: CEFTAZIDIME IV SCH (15:00)
[2021-05-05] MEDS: CEFTRIAXONE 1 GM in SODIUM CHLORIDE 0.9% 50ML 50 ML IV SCH (20:51)
[2021-05-05] MEDS ORDERED: INSULIN GLARGINE 100 UNITS/ML VIAL SQ SCH (21:00)
[2021-05-06] VITALS (7 sets, daily range): BP systolic 146–178; BP diastolic 68–82
[2021-05-06] MEDS: SODIUM CHLORIDE 0.9% 1000ML 1,000 ML IV SCH ×3 (00:44→20:48)
[2021-05-06] MEDS: INSULIN LISPRO 100 UNIT/1 ML 3ML VIAL SQ SCH ×8 (07:56→21:02)
[2021-05-06] MEDS: CELECOXIB 200 MG CAP PO SCH ×2 (08:09→16:08)
[2021-05-06] MEDS: ASPIRIN 81 MG CHEW TAB PO SCH (08:09)
[2021-05-06] MEDS: CEFTRIAXONE 1 GM in SODIUM CHLORIDE 0.9% 50ML 50 ML IV SCH ×2 (08:09→20:47)
[2021-05-06] MEDS: SODIUM BICARBONATE 650 MG TAB PO SCH ×2 (08:10→16:09)
[2021-05-06] MEDS: ATORVASTATIN 20 MG TAB PO SCH (08:10)
[2021-05-06] MEDS: AMLODIPINE BESYLATE 5 MG TAB PO SCH (08:10)
[2021-05-06] MEDS: CARVEDILOL 3.125 MG TAB PO SCH ×2 (08:10→16:09)
[2021-05-06] MEDS: TAMSULOSIN HCL 0.4 MG CAP PO SCH ×2 (08:10→16:09)
[2021-05-06] MEDS: FEBUXOSTAT 80 MG TAB PO SCH (08:10)
[2021-05-06] MEDS: FINASTERIDE 5 MG TAB PO SCH (08:10)
[2021-05-06] MEDS: METHYLPREDNISOLONE SOD SUCC 40 MG/ML VIAL 1ML IV SCH ×2 (08:52→20:48)
[2021-05-06] MEDS: KETOROLAC TROMETHAMINE 30 MG/ML VIAL IV PRN (16:21)
[2021-05-06] MEDS ORDERED: INSULIN GLARGINE 100 UNITS/ML VIAL SQ SCH (21:00)
[2021-05-07] VITALS (8 sets, daily range): BP systolic 126–172; BP diastolic 64–79
[2021-05-07 06:42] LABS: BASOPHILS % 0.1 % (0.0-1.0); HEMATOCRIT 33.3 % (38.2-49.6); LYMPHOCYTES # (AUTO) 0.6 (1.0-3.2); LYMPHOCYTES % 4.5 % (18.0-39.1); MEAN CORPUSCULAR HEMOGLOBIN 29.5 pg (28-32); MEAN CORPUSCULAR VOLUME 89.3 fL (81-99); MONOCYTES # (AUTO) 0.9 (0.2-0.8); MONOCYTES % 7.3 % (4.4-11.3); NEUTROPHILS # (AUTO) 11.1 (2.1-6.9); NEUTROPHILS % 86.8 % (38.7-80.0); PLATELET COUNT 114 x10e3/uL (140-360); RED BLOOD COUNT 3.73 x10e6/uL (4.3-5.7); RED CELL DISTRIBUTION WIDTH 14.5 % (11.7-14.4)
[2021-05-07] MEDS: SODIUM CHLORIDE 0.9% 1000ML 1,000 ML IV SCH ×2 (07:00→16:40)
[2021-05-07 07:38] LABS: ANION GAP 13.5 mmol/L (8-16); CALCIUM 7.3 mg/dL (8.4-10.2); CREATININE, SERUM 1.72 mg/dL (0.72-1.25); POTASSIUM 4.5 mmol/L (3.5-5.1)
[2021-05-07] MEDS: ASPIRIN 81 MG CHEW TAB PO SCH (08:15)
[2021-05-07] MEDS: INSULIN LISPRO 100 UNIT/1 ML 3ML VIAL SQ SCH ×7 (08:17→21:00)
[2021-05-07] MEDS: CARVEDILOL 3.125 MG TAB PO SCH ×2 (08:17→16:40)
[2021-05-07] MEDS: CELECOXIB 200 MG CAP PO SCH ×2 (08:17→16:40)
[2021-05-07] MEDS: TAMSULOSIN HCL 0.4 MG CAP PO SCH ×2 (08:18→16:40)
[2021-05-07] MEDS: AMLODIPINE BESYLATE 5 MG TAB PO SCH (08:18)
[2021-05-07] MEDS: ATORVASTATIN 20 MG TAB PO SCH (08:18)
[2021-05-07] MEDS: FINASTERIDE 5 MG TAB PO SCH (08:18)
[2021-05-07] MEDS: SODIUM BICARBONATE 650 MG TAB PO SCH ×2 (08:21→16:40)
[2021-05-07] MEDS: FEBUXOSTAT 80 MG TAB PO SCH (08:22)
[2021-05-07] MEDS: CEFTRIAXONE 1 GM in SODIUM CHLORIDE 0.9% 50ML 50 ML IV SCH ×2 (08:24→20:42)
[2021-05-07] MEDS: METHYLPREDNISOLONE SOD SUCC 40 MG/ML VIAL 1ML IV SCH ×2 (08:24→20:44)
[2021-05-07] MEDS: INSULIN GLARGINE 100 UNITS/ML VIAL SQ SCH (21:08)
[2021-05-08] VITALS (8 sets, daily range): BP systolic 126–145; BP diastolic 63–76
[2021-05-08] MEDS: SODIUM CHLORIDE 0.9% 1000ML 1,000 ML IV SCH ×3 (04:32→22:54)
[2021-05-08] MEDS: KETOROLAC TROMETHAMINE 30 MG/ML VIAL IV PRN (06:46)
[2021-05-08] MEDS: INSULIN LISPRO 100 UNIT/1 ML 3ML VIAL SQ SCH ×7 (07:30→21:07)
[2021-05-08] MEDS: CEFTRIAXONE 1 GM in SODIUM CHLORIDE 0.9% 50ML 50 ML IV SCH ×2 (09:50→20:56)
[2021-05-08] MEDS: CARVEDILOL 3.125 MG TAB PO SCH ×2 (09:53→15:50)
[2021-05-08] MEDS: ASPIRIN 81 MG CHEW TAB PO SCH (09:53)
[2021-05-08] MEDS: CELECOXIB 200 MG CAP PO SCH ×2 (09:53→15:17)
[2021-05-08] MEDS: TAMSULOSIN HCL 0.4 MG CAP PO SCH ×2 (09:53→15:17)
[2021-05-08] MEDS: AMLODIPINE BESYLATE 5 MG TAB PO SCH (09:54)
[2021-05-08] MEDS: ATORVASTATIN 20 MG TAB PO SCH (09:54)
[2021-05-08] MEDS: SODIUM BICARBONATE 650 MG TAB PO SCH ×2 (09:54→15:17)
[2021-05-08] MEDS: FEBUXOSTAT 80 MG TAB PO SCH (09:54)
[2021-05-08] MEDS: METHYLPREDNISOLONE SOD SUCC 40 MG/ML VIAL 1ML IV SCH (09:54)
[2021-05-08] MEDS: FINASTERIDE 5 MG TAB PO SCH (09:54)
[2021-05-08] MEDS: HYDROCODONE/APAP 5MG-325MG TAB PO PRN (13:25)
[2021-05-08] MEDS: INSULIN GLARGINE 100 UNITS/ML VIAL SQ SCH (21:07)
[2021-05-09] VITALS: BP 139/67
[2021-05-09 04:00] VITALS: BP 170/76
[2021-05-09 08:17] VITALS: BP 145/79
[2021-05-09] MEDS: CEFTRIAXONE 1 GM in SODIUM CHLORIDE 0.9% 50ML 50 ML IV SCH (09:20)
[2021-05-09] MEDS: ASPIRIN 81 MG CHEW TAB PO SCH (09:20)
[2021-05-09] MEDS: CELECOXIB 200 MG CAP PO SCH (09:20)
[2021-05-09] MEDS: SODIUM BICARBONATE 650 MG TAB PO SCH (09:21)
[2021-05-09] MEDS: AMLODIPINE BESYLATE 5 MG TAB PO SCH (09:21)
[2021-05-09] MEDS: CARVEDILOL 3.125 MG TAB PO SCH (09:21)
[2021-05-09] MEDS: TAMSULOSIN HCL 0.4 MG CAP PO SCH (09:21)
[2021-05-09] MEDS: ATORVASTATIN 20 MG TAB PO SCH (09:21)
[2021-05-09] MEDS: FEBUXOSTAT 80 MG TAB PO SCH (09:21)
[2021-05-09] MEDS: SODIUM CHLORIDE 0.9% 1000ML 1,000 ML IV SCH (09:23)
[2021-05-09] MEDS: FINASTERIDE 5 MG TAB PO SCH (09:23)
[2021-05-09] MEDS: INSULIN LISPRO 100 UNIT/1 ML 3ML VIAL SQ SCH ×6 (09:25→16:22)
[2021-05-09 10:38] VITALS: BP 145/79
[2021-05-09 11:12] VITALS: BP 142/69
[2021-05-09] MEDS ORDERED: ONDANSETRON HCL 4 MG ORAL DISINTEGRATING TAB PO PRN (14:15)
[2021-05-09] MEDS: HYDROCODONE/APAP 5MG-325MG TAB PO PRN (15:26)
[2021-05-09 16:15] VITALS: BP 130/60
== END 2021-05-09 17:34 | DRG 854 ==
LOC: ER 14:29 → ERHOLD 16:23 → MED/SURG3 05-02 15:04
PROVIDERS: ADMIT Internal Medicine; ATTEND Internal Medicine
PROC: 0S9C3ZX Drainage of Right Knee Joint, Percutaneous Approach, Diagnostic (ICD-10-PCS; 2021-05-03)
PROC: 0SBC4ZZ Excision of Right Knee Joint, Percutaneous Endoscopic Approach (ICD-10-PCS; 2021-05-04)
PROC: 3E1U48Z Irrigation of Joints using Irrigating Substance, Percutaneous Endoscopic Approach (ICD-10-PCS; principal; 2021-05-04 10:00)
DX: A41.51 Sepsis due to Escherichia coli [E. coli] (principal); N17.9 Acute kidney failure, unspecified; N39.0 Urinary tract infection, site not specified; M00.061 Staphylococcal arthritis, right knee; E11.22 Type 2 diabetes mellitus with diabetic chronic kidney disease; I12.9 Hypertensive chronic kidney disease with stage 1 through stage 4 chronic kidney disease, or unspecified chronic kidney disease; M10.9 Gout, unspecified; I25.10 Atherosclerotic heart disease of native coronary artery without angina pectoris; E87.5 Hyperkalemia; Z95.5 Presence of coronary angioplasty implant and graft; E11.65 Type 2 diabetes mellitus with hyperglycemia; E78.5 Hyperlipidemia, unspecified; E66.9 Obesity, unspecified; Z68.34 Body mass index [BMI] 34.0-34.9, adult; Z20.822 Contact with and (suspected) exposure to COVID-19; D69.6 Thrombocytopenia, unspecified; G47.33 Obstructive sleep apnea (adult) (pediatric); N40.0 Benign prostatic hyperplasia without lower urinary tract symptoms; G89.4 Chronic pain syndrome; N18.32 Chronic kidney disease, stage 3b
CPT/HCPCS: 36415; 51700; 70450; 71045; 76770; 80048; 80053; 81001; 82948; 83036; 83605; 83735; 84132; 84439; 84443; 84484; 84550; 85025; 85379; 87040; 87070; 87071; 87186; 87205; 89051; 89060; 93005; 93970; 96360; 96372; 97139; 99251; 99284; J0610; J0692; J0696; J0713; J1817; J1885; J2001; J2175; J2920; J2930; J3370; J7030; J7050; J7799; U0002

== ENCOUNTER 2021-06-05 21:28 | Inpatient (IN) | payer MEDICARE, BC ==
[~2021-06-05] VITALS: Ht 185.4 cm; Wt 116.2 kg
[2021-06-05] MEDS: SODIUM CHLORIDE 0.9% 1000ML 1,000 ML IV SCH (01:30)
[~2021-06-05 21:28] MED LIST changes: +COREG6.25 MG PO
[2021-06-05 21:55] LABS: BASOPHILS # (AUTO) 0.1 (0.0-0.1); BASOPHILS % 0.1 % (0.0-1.0); HEMATOCRIT 31.3 % (38.2-49.6); HEMOGLOBIN 9.7 g/dL (14.0-18.0); LYMPHOCYTES # (AUTO) 5.6 (1.0-3.2); LYMPHOCYTES % 15.7 % (18.0-39.1); MEAN CORPUSCULAR HEMOGLOBIN 26.9 pg (28-32); MEAN CORPUSCULAR VOLUME 86.7 fL (81-99); MONOCYTES % 5.7 % (4.4-11.3); NEUTROPHILS # (AUTO) 26.9 (2.1-6.9); NEUTROPHILS % 75.2 % (38.7-80.0); PLATELET COUNT 262 x10e3/uL (140-360); RED BLOOD COUNT 3.61 x10e6/uL (4.3-5.7); RED CELL DISTRIBUTION WIDTH 15.7 % (11.7-14.4)
[2021-06-05 22:02] LABS: INR 1.48; PROTHROMBIN TIME 18.5 seconds (11.9-14.5)
[2021-06-05 22:03] LABS: PARTIAL THROMBOPLASTIN TIME 40.7 seconds (23.8-35.5)
[2021-06-05 22:12] LABS: ALBUMIN 1.5 g/dL (3.5-5.0); ALBUMIN/GLOBULIN RATIO 0.3 (0.8-2.0); ANION GAP 16.8 mmol/L (8-16); CALCIUM 7.6 mg/dL (8.4-10.2); CREATININE, SERUM 2.24 mg/dL (0.72-1.25); POTASSIUM 4.8 mmol/L (3.5-5.1)
[2021-06-05] MEDS ORDERED: CEFTRIAXONE 1 GM in SODIUM CHLORIDE 0.9% 50ML 50 ML IV ONE (22:15)
[2021-06-05] MEDS ORDERED: Vancomycin IV 1 GM in SODIUM CHLORIDE 0.9% 250ML 250 ML IV STA (22:20)
[2021-06-05] MEDS ORDERED: SODIUM CHLORIDE 0.9% 1000ML 1,000 ML IV STA ×2 (22:21→22:47)
[2021-06-05] MEDS ORDERED: CEFEPIME 1 GM in SODIUM CHLORIDE 0.9% 50ML 50 ML IV ONE (22:30)
[2021-06-05 22:41] LABS: CREATINE KINASE MB 0.5 ng/mL (0-5.0)
[2021-06-05] MEDS ORDERED: FENTANYL CITRATE/PF 100MCG/2 ML INJ IV ONE (23:00)
[2021-06-05] MEDS ORDERED: FENTANYL CITRATE/PF 100MCG/2 ML INJ ONE (23:07)
[2021-06-05] MEDS ORDERED: ONDANSETRON HCL INJ 2MG/ML 2ML 2 MG/ML VIAL IV PRN (23:30)
[2021-06-05 23:35] LABS: CLARITY,URINE CLOUDY (CLEAR); COLOR,URINE YELLOW (YELLOW); LEUKOCYTE ESTERASE ,URINE NEGATIVE (NEGATIVE); NITRITE,URINE NEGATIVE (NEGATIVE)
[2021-06-05 23:36] LABS: KETONES,URINE NEGATIVE (NEGATIVE); PROTEIN,URINE DIPSTICK 2+ (NEGATIVE); URINE UROBILINOGEN 0.2 mg/dL (0.2 - 1)
[2021-06-06] VITALS (10 sets, daily range): BP systolic 120–148; BP diastolic 62–80
[2021-06-06 00:26] LABS: WBC,URINE (MAN) 21-50 /HPF (0-5)
[2021-06-06 00:27] LABS: AMORPHOUS SEDIMENT,URINE MANY (FEW); BACTERIA,URINE MANY /HPF; EPITHELIAL CELLS,URINE FEW /LPF; TRANSITIONAL EPI CELLS,URINE FEW
[2021-06-06] MEDS: HYDROMORPHONE 1MG/1ML INJ IV PRN ×4 (02:35→21:06)
[2021-06-06] MEDS: SODIUM CHLORIDE 0.9% 1000ML 1,000 ML IV SCH ×3 (07:30→23:30)
[2021-06-06] MEDS: INSULIN LISPRO 100 UNIT/1 ML 3ML VIAL SQ SCH ×3 (07:30→16:30)
[2021-06-06 07:48] LABS: BASOPHILS # (AUTO) 0.1 (0.0-0.1); BASOPHILS % 0.3 % (0.0-1.0); EOSINOPHILS # (AUTO) 0.1 (0.0-0.4); EOSINOPHILS % 0.2 % (0.0-6.0); HEMATOCRIT 27.2 % (38.2-49.6); HEMOGLOBIN 8.4 g/dL (14.0-18.0); LYMPHOCYTES # (AUTO) 4.8 (1.0-3.2); MEAN CORPUSCULAR HEMOGLOBIN 26.7 pg (28-32); MEAN CORPUSCULAR HGB CONC 30.9 g/dL (31-35); MEAN CORPUSCULAR VOLUME 86.3 fL (81-99); MONOCYTES # (AUTO) 1.9 (0.2-0.8); MONOCYTES % 7.7 % (4.4-11.3); NEUTROPHILS # (AUTO) 16.8 (2.1-6.9); NEUTROPHILS % 69.6 % (38.7-80.0); PLATELET COUNT 255 x10e3/uL (140-360); RED BLOOD COUNT 3.15 x10e6/uL (4.3-5.7); RED CELL DISTRIBUTION WIDTH 15.6 % (11.7-14.4)
[2021-06-06 08:07] LABS: ANION GAP 11.3 mmol/L (8-16); CALCIUM 7.4 mg/dL (8.4-10.2); CREATININE, SERUM 2.04 mg/dL (0.72-1.25); POTASSIUM 4.3 mmol/L (3.5-5.1)
[2021-06-06] MEDS: ASPIRIN 81 MG CHEW TAB PO SCH (08:35)
[2021-06-06] MEDS: COLCHICINE 0.6 MG TAB PO SCH ×2 (08:35→17:00)
[2021-06-06] MEDS: CARVEDILOL 3.125 MG TAB PO SCH ×2 (08:36→17:00)
[2021-06-06 08:37] LABS: LYMPHOCYTES % (MANUAL) 12 % (19-48); MONOCYTES % (MANUAL) 6 % (3.4-9.0); NEUTROPHILS % (MANUAL) 81 % (40-74)
[2021-06-06] MEDS: TAMSULOSIN HCL 0.4 MG CAP PO SCH ×2 (08:37→17:00)
[2021-06-06] MEDS: ATORVASTATIN 20 MG TAB PO SCH (08:37)
[2021-06-06] MEDS: MAGNESIUM OXIDE 400 MG TAB PO SCH (08:37)
[2021-06-06 08:38] LABS: ANISOCYTOSIS SLIGHT; HYPOCHROMASIA SLIGHT; PLATELET ESTIMATE ADEQUATE; PLATELET MORPHOLOGY COMMENT NORMAL; RBC MORPHOLOGY COMMENT NORMAL
[2021-06-06] MEDS: FINASTERIDE 5 MG TAB PO SCH (08:38)
[2021-06-06] MEDS: CLOPIDOGREL BISULFATE 75 MG TAB PO SCH (08:38)
[2021-06-06] MEDS: AMLODIPINE BESYLATE 5 MG TAB PO SCH (08:38)
[2021-06-06] MEDS: POTASSIUM CITRATE ER 10 MEQ TAB PO SCH ×2 (08:39→17:00)
[2021-06-06] MEDS: FEBUXOSTAT 80 MG TAB PO SCH (08:42)
[2021-06-06] MEDS: NITROFURANTOIN MACROCRYSTALS 100 MG CAP PO SCH ×2 (12:00→17:00)
[2021-06-06] MEDS: CEFTRIAXONE 2 GM VIAL IM SCH (13:51)
[2021-06-06 14:18] LABS: BODY FLUID APPEARANCE TURBID; BODY FLUID COLOR RED; BODY FLUID TYPE SYNOVIAL; RBC,BODY FLUID 536000 cells/uL; WBC,BODY FLUID 144705 cells/uL
[2021-06-06 15:20] LABS: NEUTROPHILS,BODY FLUID 94 %
[2021-06-06 15:54] LABS: LYMPHOCYTES,BODY FLUID 4 %; MONO/MACROPHG,BODY FLUID 2 %
[2021-06-07] VITALS (8 sets, daily range): BP systolic 122–149; BP diastolic 60–83
[2021-06-07] MEDS: HYDROMORPHONE 1MG/1ML INJ IV PRN ×2 (05:17→17:15)
[2021-06-07] MEDS: SODIUM CHLORIDE 0.9% 1000ML 1,000 ML IV SCH ×3 (05:49→14:31)
[2021-06-07 06:19] LABS: BASOPHILS % 0.3 % (0.0-1.0); EOSINOPHILS % 0.3 % (0.0-6.0); HEMATOCRIT 29.9 % (38.2-49.6); LYMPHOCYTES % 26.9 % (18.0-39.1); MEAN CORPUSCULAR HEMOGLOBIN 26.3 pg (28-32); MEAN CORPUSCULAR HGB CONC 30.1 g/dL (31-35); MEAN CORPUSCULAR VOLUME 87.4 fL (81-99); MONOCYTES # (AUTO) 1.3 (0.2-0.8); MONOCYTES % 8.4 % (4.4-11.3); NEUTROPHILS # (AUTO) 9.3 (2.1-6.9); NEUTROPHILS % 62.2 % (38.7-80.0); PLATELET COUNT 238 x10e3/uL (140-360); RED BLOOD COUNT 3.42 x10e6/uL (4.3-5.7); RED CELL DISTRIBUTION WIDTH 15.7 % (11.7-14.4)
[2021-06-07 06:43] LABS: ALBUMIN 1.3 g/dL (3.5-5.0); ALBUMIN/GLOBULIN RATIO 0.3 (0.8-2.0); ANION GAP 12.5 mmol/L (8-16); CALCIUM 7.6 mg/dL (8.4-10.2); CREATININE, SERUM 1.79 mg/dL (0.72-1.25); POTASSIUM 4.5 mmol/L (3.5-5.1)
[2021-06-07] MEDS: INSULIN LISPRO 100 UNIT/1 ML 3ML VIAL SQ SCH ×3 (07:30→15:44)
[2021-06-07 07:37] LABS: LYMPHOCYTES % (MANUAL) 22 % (19-48); MONOCYTES % (MANUAL) 10 % (3.4-9.0); MYELOCYTES % (MANUAL) 1 % (0-0); NEUTROPHILS % (MANUAL) 67 % (40-74)
[2021-06-07 07:38] LABS: HYPOCHROMASIA SLIGHT; PLATELET ESTIMATE ADEQUATE; PLATELET MORPHOLOGY COMMENT NORMAL; RBC MORPHOLOGY COMMENT NORMAL
[2021-06-07] MEDS: NITROFURANTOIN MACROCRYSTALS 100 MG CAP PO SCH ×2 (08:00→16:06)
[2021-06-07] MEDS: COLCHICINE 0.6 MG TAB PO SCH ×2 (08:14→16:06)
[2021-06-07] MEDS: FEBUXOSTAT 80 MG TAB PO SCH (08:14)
[2021-06-07] MEDS: ASPIRIN 81 MG CHEW TAB PO SCH (08:14)
[2021-06-07] MEDS: CLOPIDOGREL BISULFATE 75 MG TAB PO SCH (08:14)
[2021-06-07] MEDS: MAGNESIUM OXIDE 400 MG TAB PO SCH (08:14)
[2021-06-07] MEDS: ATORVASTATIN 20 MG TAB PO SCH (08:14)
[2021-06-07] MEDS: FINASTERIDE 5 MG TAB PO SCH (08:14)
[2021-06-07] MEDS: CARVEDILOL 3.125 MG TAB PO SCH ×2 (08:14→16:06)
[2021-06-07] MEDS: AMLODIPINE BESYLATE 5 MG TAB PO SCH (08:14)
[2021-06-07] MEDS: TAMSULOSIN HCL 0.4 MG CAP PO SCH ×2 (08:14→16:06)
[2021-06-07] MEDS: BACITRACIN ZINC 15 GM OINT TOP SCH (08:15)
[2021-06-07] MEDS: POTASSIUM CITRATE ER 10 MEQ TAB PO SCH ×2 (08:15→16:07)
[2021-06-07] MEDS ORDERED: SODIUM CHLORIDE 0.9% 50ML 50 ML ONE (11:14)
[2021-06-07] MEDS ORDERED: ONDANSETRON HCL INJ 2MG/ML 2ML 2 MG/ML VIAL ONE (12:36)
[2021-06-07] MEDS ORDERED: CEFTRIAXONE 1 GM VIAL ONE (12:36)
[2021-06-07] MEDS ORDERED: Vancomycin IV 1 GM VIAL ONE (12:36)
[2021-06-07] MEDS ORDERED: KETOROLAC TROMETHAMINE 30 MG/ML VIAL ONE (12:36)
[2021-06-07] MEDS ORDERED: POVIDONE IODINE 0.05% 0.05 % ML PO ONE (12:36)
[2021-06-07] MEDS ORDERED: SEVOFLURANE INHAL SOLN 250 ML PEN BTL ONE (12:36)
[2021-06-07] MEDS ORDERED: LIDOCAINE HCL 2% LOCAL INJ 5 ML SDV VIAL INJ ONE (12:36)
[2021-06-07] MEDS ORDERED: PROPOFOL IV EMULSION 10 MG/ML 20 ML VIAL ONE (12:36)
[2021-06-07] MEDS ORDERED: DEXAMETHASONE SOD PHOS INJ 4 MG/ML SDV ONE (12:36)
[2021-06-07] MEDS: CEFTRIAXONE 2 GM VIAL IM SCH (13:00)
[2021-06-07] MEDS ORDERED: FENTANYL CITRATE/PF 100MCG/2 ML INJ ONE (13:57)
[2021-06-07] MEDS: MEROPENEM 500 MG in SODIUM CHLORIDE 0.9% 50ML 50 ML IV SCH (14:47)
[2021-06-08] VITALS (8 sets, daily range): BP systolic 125–150; BP diastolic 62–72
[2021-06-08] MEDS: MEROPENEM 500 MG in SODIUM CHLORIDE 0.9% 50ML 50 ML IV SCH (02:33)
[2021-06-08 06:11] LABS: BASOPHILS % 0.2 % (0.0-1.0); HEMATOCRIT 29.9 % (38.2-49.6); HEMOGLOBIN 8.9 g/dL (14.0-18.0); LYMPHOCYTES % 14.2 % (18.0-39.1); MEAN CORPUSCULAR HEMOGLOBIN 26.3 pg (28-32); MEAN CORPUSCULAR HGB CONC 29.8 g/dL (31-35); MEAN CORPUSCULAR VOLUME 88.5 fL (81-99); MONOCYTES # (AUTO) 0.9 (0.2-0.8); MONOCYTES % 4.3 % (4.4-11.3); NEUTROPHILS # (AUTO) 16.8 (2.1-6.9); NEUTROPHILS % 79.8 % (38.7-80.0); PLATELET COUNT 230 x10e3/uL (140-360); RED BLOOD COUNT 3.38 x10e6/uL (4.3-5.7); RED CELL DISTRIBUTION WIDTH 15.5 % (11.7-14.4)
[2021-06-08 06:55] LABS: ALBUMIN 1.4 g/dL (3.5-5.0); ALBUMIN/GLOBULIN RATIO 0.3 (0.8-2.0); ANION GAP 13.1 mmol/L (8-16); CALCIUM 7.5 mg/dL (8.4-10.2); CREATININE, SERUM 1.92 mg/dL (0.72-1.25); POTASSIUM 5.1 mmol/L (3.5-5.1)
[2021-06-08] MEDS: ATORVASTATIN 20 MG TAB PO SCH (09:03)
[2021-06-08] MEDS: NITROFURANTOIN MACROCRYSTALS 100 MG CAP PO SCH (09:03)
[2021-06-08] MEDS: TAMSULOSIN HCL 0.4 MG CAP PO SCH ×2 (09:03→16:10)
[2021-06-08] MEDS: FEBUXOSTAT 80 MG TAB PO SCH (09:03)
[2021-06-08] MEDS: FINASTERIDE 5 MG TAB PO SCH (09:03)
[2021-06-08] MEDS: SODIUM CHLORIDE 0.9% 1000ML 1,000 ML IV SCH ×2 (09:03→14:30)
[2021-06-08] MEDS: ASPIRIN 81 MG CHEW TAB PO SCH (09:03)
[2021-06-08] MEDS: CLOPIDOGREL BISULFATE 75 MG TAB PO SCH (09:03)
[2021-06-08] MEDS: AMLODIPINE BESYLATE 5 MG TAB PO SCH (09:03)
[2021-06-08] MEDS: MAGNESIUM OXIDE 400 MG TAB PO SCH (09:03)
[2021-06-08] MEDS: COLCHICINE 0.6 MG TAB PO SCH ×2 (09:03→16:10)
[2021-06-08] MEDS: POTASSIUM CITRATE ER 10 MEQ TAB PO SCH ×2 (09:04→16:10)
[2021-06-08] MEDS: BACITRACIN ZINC 15 GM OINT TOP SCH (09:04)
[2021-06-08] MEDS: CARVEDILOL 3.125 MG TAB PO SCH ×2 (09:04→16:10)
[2021-06-08] MEDS: INSULIN LISPRO 100 UNIT/1 ML 3ML VIAL SQ SCH ×3 (09:27→16:42)
[2021-06-08] MEDS: HYDROMORPHONE 1MG/1ML INJ IV PRN ×2 (13:50→18:26)
[2021-06-08] MEDS: CEFTRIAXONE 1 GM in SODIUM CHLORIDE 0.9% 50ML 50 ML IV SCH (14:27)
[2021-06-08] MEDS ORDERED: ONDANSETRON HCL 4 MG ORAL DISINTEGRATING TAB PO PRN (15:45)
[2021-06-09] VITALS (10 sets, daily range): BP systolic 130–162; BP diastolic 68–87
[2021-06-09] MEDS: SODIUM CHLORIDE 0.9% 1000ML 1,000 ML IV SCH ×3 (00:12→15:42)
[2021-06-09] MEDS: HYDROMORPHONE 1MG/1ML INJ IV PRN ×5 (00:23→18:56)
[2021-06-09 06:48] LABS: BASOPHILS # (AUTO) 0.1 (0.0-0.1); BASOPHILS % 0.3 % (0.0-1.0); EOSINOPHILS % 0.1 % (0.0-6.0); HEMATOCRIT 29.6 % (38.2-49.6); HEMOGLOBIN 8.9 g/dL (14.0-18.0); LYMPHOCYTES # (AUTO) 3.7 (1.0-3.2); LYMPHOCYTES % 22.7 % (18.0-39.1); MEAN CORPUSCULAR HEMOGLOBIN 25.9 pg (28-32); MEAN CORPUSCULAR HGB CONC 30.1 g/dL (31-35); MEAN CORPUSCULAR VOLUME 86.3 fL (81-99); MONOCYTES # (AUTO) 1.1 (0.2-0.8); MONOCYTES % 6.9 % (4.4-11.3); NEUTROPHILS # (AUTO) 11.1 (2.1-6.9); NEUTROPHILS % 68.2 % (38.7-80.0); PLATELET COUNT 203 x10e3/uL (140-360); RED BLOOD COUNT 3.43 x10e6/uL (4.3-5.7); RED CELL DISTRIBUTION WIDTH 15.6 % (11.7-14.4)
[2021-06-09 07:19] LABS: ALBUMIN 1.5 g/dL (3.5-5.0); ALBUMIN/GLOBULIN RATIO 0.3 (0.8-2.0); ANION GAP 9.7 mmol/L (8-16); CALCIUM 7.4 mg/dL (8.4-10.2); CREATININE, SERUM 1.77 mg/dL (0.72-1.25); POTASSIUM 4.7 mmol/L (3.5-5.1)
[2021-06-09] MEDS: ASPIRIN 81 MG CHEW TAB PO SCH (09:26)
[2021-06-09] MEDS: COLCHICINE 0.6 MG TAB PO SCH ×2 (09:27→16:46)
[2021-06-09] MEDS: FEBUXOSTAT 80 MG TAB PO SCH (09:28)
[2021-06-09] MEDS: CARVEDILOL 3.125 MG TAB PO SCH ×2 (09:28→16:46)
[2021-06-09] MEDS: CLOPIDOGREL BISULFATE 75 MG TAB PO SCH (09:28)
[2021-06-09] MEDS: MAGNESIUM OXIDE 400 MG TAB PO SCH (09:28)
[2021-06-09] MEDS: FINASTERIDE 5 MG TAB PO SCH (09:28)
[2021-06-09] MEDS: TAMSULOSIN HCL 0.4 MG CAP PO SCH ×2 (09:28→16:46)
[2021-06-09] MEDS: ATORVASTATIN 20 MG TAB PO SCH (09:28)
[2021-06-09] MEDS: POTASSIUM CITRATE ER 10 MEQ TAB PO SCH ×2 (09:28→16:46)
[2021-06-09] MEDS: AMLODIPINE BESYLATE 5 MG TAB PO SCH (09:28)
[2021-06-09] MEDS: INSULIN LISPRO 100 UNIT/1 ML 3ML VIAL SQ SCH ×3 (10:09→15:32)
[2021-06-09] MEDS: BACITRACIN ZINC 15 GM OINT TOP SCH (10:11)
[2021-06-09] MEDS ORDERED: SODIUM CHLORIDE 0.9% 250ML 250 ML IV ONE (13:15)
[2021-06-09] MEDS: CEFTRIAXONE 1 GM in SODIUM CHLORIDE 0.9% 50ML 50 ML IV SCH (15:33)
[2021-06-10] VITALS (8 sets, daily range): BP systolic 132–152; BP diastolic 57–72
[2021-06-10] MEDS: HYDROMORPHONE 1MG/1ML INJ IV PRN ×4 (00:50→19:43)
[2021-06-10] MEDS: SODIUM CHLORIDE 0.9% 1000ML 1,000 ML IV SCH ×4 (05:36→22:51)
[2021-06-10] MEDS: INSULIN LISPRO 100 UNIT/1 ML 3ML VIAL SQ SCH ×3 (07:30→16:30)
[2021-06-10] MEDS: ASPIRIN 81 MG CHEW TAB PO SCH (09:00)
[2021-06-10] MEDS: COLCHICINE 0.6 MG TAB PO SCH ×2 (09:00→17:25)
[2021-06-10] MEDS: TAMSULOSIN HCL 0.4 MG CAP PO SCH ×2 (09:01→17:25)
[2021-06-10] MEDS: CARVEDILOL 3.125 MG TAB PO SCH ×2 (09:01→17:25)
[2021-06-10] MEDS: MAGNESIUM OXIDE 400 MG TAB PO SCH (09:01)
[2021-06-10] MEDS: ATORVASTATIN 20 MG TAB PO SCH (09:01)
[2021-06-10] MEDS: FINASTERIDE 5 MG TAB PO SCH (09:02)
[2021-06-10] MEDS: CLOPIDOGREL BISULFATE 75 MG TAB PO SCH (09:02)
[2021-06-10] MEDS: AMLODIPINE BESYLATE 5 MG TAB PO SCH (09:02)
[2021-06-10] MEDS: POTASSIUM CITRATE ER 10 MEQ TAB PO SCH ×2 (09:02→17:25)
[2021-06-10] MEDS: BACITRACIN ZINC 15 GM OINT TOP SCH (09:03)
[2021-06-10] MEDS: FEBUXOSTAT 80 MG TAB PO SCH (09:05)
[2021-06-10] MEDS: CEFTRIAXONE 1 GM in SODIUM CHLORIDE 0.9% 50ML 50 ML IV SCH (15:47)
[2021-06-11] VITALS (8 sets, daily range): BP systolic 122–151; BP diastolic 59–89
[2021-06-11] MEDS: HYDROMORPHONE 1MG/1ML INJ IV PRN ×5 (02:00→20:27)
[2021-06-11 06:40] LABS: BASOPHILS # (AUTO) 0.1 (0.0-0.1); BASOPHILS % 0.4 % (0.0-1.0); EOSINOPHILS # (AUTO) 0.1 (0.0-0.4); EOSINOPHILS % 0.6 % (0.0-6.0); HEMATOCRIT 31.4 % (38.2-49.6); HEMOGLOBIN 9.1 g/dL (14.0-18.0); LYMPHOCYTES # (AUTO) 4.5 (1.0-3.2); LYMPHOCYTES % 36.4 % (18.0-39.1); MEAN CORPUSCULAR HEMOGLOBIN 26.5 pg (28-32); MEAN CORPUSCULAR VOLUME 91.5 fL (81-99); MONOCYTES # (AUTO) 1.1 (0.2-0.8); MONOCYTES % 8.7 % (4.4-11.3); NEUTROPHILS # (AUTO) 6.5 (2.1-6.9); NEUTROPHILS % 52.4 % (38.7-80.0); PLATELET COUNT 198 x10e3/uL (140-360); RED BLOOD COUNT 3.43 x10e6/uL (4.3-5.7); RED CELL DISTRIBUTION WIDTH 15.6 % (11.7-14.4)
[2021-06-11 06:58] LABS: ALBUMIN 1.6 g/dL (3.5-5.0); ALBUMIN/GLOBULIN RATIO 0.3 (0.8-2.0); ANION GAP 13.6 mmol/L (8-16); CALCIUM 7.7 mg/dL (8.4-10.2); CREATININE, SERUM 1.44 mg/dL (0.72-1.25); POTASSIUM 4.6 mmol/L (3.5-5.1)
[2021-06-11] MEDS: CLOPIDOGREL BISULFATE 75 MG TAB PO SCH (09:00)
[2021-06-11] MEDS: ASPIRIN 81 MG CHEW TAB PO SCH (09:00)
[2021-06-11] MEDS: INSULIN LISPRO 100 UNIT/1 ML 3ML VIAL SQ SCH ×3 (09:30→16:02)
[2021-06-11] MEDS: ATORVASTATIN 20 MG TAB PO SCH (09:41)
[2021-06-11] MEDS: CARVEDILOL 3.125 MG TAB PO SCH ×2 (09:41→16:26)
[2021-06-11] MEDS: MAGNESIUM OXIDE 400 MG TAB PO SCH (09:41)
[2021-06-11] MEDS: FINASTERIDE 5 MG TAB PO SCH (09:41)
[2021-06-11] MEDS: FEBUXOSTAT 80 MG TAB PO SCH (09:41)
[2021-06-11] MEDS: TAMSULOSIN HCL 0.4 MG CAP PO SCH ×2 (09:41→16:26)
[2021-06-11] MEDS: AMLODIPINE BESYLATE 5 MG TAB PO SCH (09:41)
[2021-06-11] MEDS: BACITRACIN ZINC 15 GM OINT TOP SCH (09:41)
[2021-06-11] MEDS: COLCHICINE 0.6 MG TAB PO SCH ×2 (09:41→16:26)
[2021-06-11] MEDS: POTASSIUM CITRATE ER 10 MEQ TAB PO SCH ×2 (09:42→16:26)
[2021-06-11] MEDS: OXYMETAZOLINE HCL 0.05% NAS 1 SPRAY BTL SCH (10:30)
[2021-06-11] MEDS: SODIUM CHLORIDE 0.9% 1000ML 1,000 ML IV SCH ×2 (14:00→23:30)
[2021-06-11] MEDS: CEFTRIAXONE 1 GM in SODIUM CHLORIDE 0.9% 50ML 50 ML IV SCH (16:26)
[2021-06-12] VITALS (9 sets, daily range): BP systolic 120–155; BP diastolic 65–74
[2021-06-12] MEDS: HYDROMORPHONE 1MG/1ML INJ IV PRN ×2 (01:02→05:48)
[2021-06-12 05:37] LABS: BASOPHILS % 0.4 % (0.0-1.0); EOSINOPHILS # (AUTO) 0.1 (0.0-0.4); HEMATOCRIT 29.4 % (38.2-49.6); HEMOGLOBIN 8.9 g/dL (14.0-18.0); LYMPHOCYTES # (AUTO) 4.7 (1.0-3.2); LYMPHOCYTES % 41.1 % (18.0-39.1); MEAN CORPUSCULAR HEMOGLOBIN 26.9 pg (28-32); MEAN CORPUSCULAR HGB CONC 30.3 g/dL (31-35); MEAN CORPUSCULAR VOLUME 88.8 fL (81-99); MONOCYTES # (AUTO) 0.9 (0.2-0.8); MONOCYTES % 8.2 % (4.4-11.3); NEUTROPHILS # (AUTO) 5.5 (2.1-6.9); NEUTROPHILS % 47.9 % (38.7-80.0); PLATELET COUNT 125 x10e3/uL (140-360); RED BLOOD COUNT 3.31 x10e6/uL (4.3-5.7); RED CELL DISTRIBUTION WIDTH 15.4 % (11.7-14.4)
[2021-06-12 05:59] LABS: ALBUMIN 1.4 g/dL (3.5-5.0); ALBUMIN/GLOBULIN RATIO 0.3 (0.8-2.0); ANION GAP 12.9 mmol/L (8-16); CALCIUM 7.5 mg/dL (8.4-10.2); CREATININE, SERUM 1.33 mg/dL (0.72-1.25); POTASSIUM 4.9 mmol/L (3.5-5.1)
[2021-06-12] MEDS: INSULIN LISPRO 100 UNIT/1 ML 3ML VIAL SQ SCH ×3 (07:30→16:30)
[2021-06-12 08:04] LABS: LYMPHOCYTES % (MANUAL) 27 % (19-48); MONOCYTES % (MANUAL) 7 % (3.4-9.0); NEUTROPHILS % (MANUAL) 66 % (40-74); PLATELET ESTIMATE SLIGHTLY DECREASED; PLATELET MORPHOLOGY COMMENT FEW EDTA CLUMPING
[2021-06-12 08:05] LABS: RBC MORPHOLOGY COMMENT NORMAL
[2021-06-12] MEDS: POTASSIUM CITRATE ER 10 MEQ TAB PO SCH ×2 (09:00→17:22)
[2021-06-12] MEDS: ASPIRIN 81 MG CHEW TAB PO SCH (09:00)
[2021-06-12] MEDS: AMLODIPINE BESYLATE 5 MG TAB PO SCH (09:00)
[2021-06-12] MEDS: ATORVASTATIN 20 MG TAB PO SCH (09:00)
[2021-06-12] MEDS: MAGNESIUM OXIDE 400 MG TAB PO SCH (09:00)
[2021-06-12] MEDS: OXYMETAZOLINE HCL 0.05% NAS 1 SPRAY BTL SCH (09:00)
[2021-06-12] MEDS: FINASTERIDE 5 MG TAB PO SCH (09:00)
[2021-06-12] MEDS: CLOPIDOGREL BISULFATE 75 MG TAB PO SCH (09:00)
[2021-06-12] MEDS: FEBUXOSTAT 80 MG TAB PO SCH (09:00)
[2021-06-12] MEDS: COLCHICINE 0.6 MG TAB PO SCH ×2 (09:00→17:20)
[2021-06-12] MEDS: SODIUM CHLORIDE 0.9% 1000ML 1,000 ML IV SCH ×3 (09:05→23:00)
[2021-06-12] MEDS: TAMSULOSIN HCL 0.4 MG CAP PO SCH ×2 (09:06→17:21)
[2021-06-12] MEDS: CARVEDILOL 3.125 MG TAB PO SCH ×2 (09:06→17:21)
[2021-06-12] MEDS: NEOMYCIN/POLYMYXIN/BACITRACIN 15 GM TUBE TOP SCH ×3 (09:47→21:40)
[2021-06-12] MEDS: BACITRACIN ZINC 15 GM OINT TOP SCH (10:00)
[2021-06-12] MEDS: SALINE 0.65% NAS SOLN 1 SPRAY BTL SCH ×4 (10:00→21:40)
[2021-06-12] MEDS ORDERED: HYDROCODONE/APAP 5MG-325MG TAB PO PRN (13:00)
[2021-06-12] MEDS ORDERED: ONDANSETRON HCL INJ 2MG/ML 2ML 2 MG/ML VIAL IV PRN (13:00)
[2021-06-12] MEDS ORDERED: KETOROLAC TROMETHAMINE 30 MG/ML VIAL IV PRN (13:00)
[2021-06-12] MEDS ORDERED: DIPHENHYDRAMINE HCL INJ 50 MG/ML VIAL IV PRN (13:00)
[2021-06-12] MEDS ORDERED: DOCUSATE SODIUM 100 MG CAP PO PRN (13:00)
[2021-06-12] MEDS ORDERED: ACETAMINOPHEN 650 MG SUPP PR PRN (13:00)
[2021-06-12] MEDS ORDERED: HYDROCODONE/APAP 7.5MG-325MG 1 EA TAB PO PRN (13:00)
[2021-06-12] MEDS ORDERED: POVIDONE IODINE 0.05% 0.05 % ML PO ONE (13:38)
[2021-06-12] MEDS ORDERED: LIDOCAINE HCL 2% LOCAL INJ 5 ML SDV VIAL INJ ONE (13:38)
[2021-06-12] MEDS ORDERED: FENTANYL CITRATE/PF 100MCG/2 ML INJ ONE ×2 (13:38→16:20)
[2021-06-12] MEDS ORDERED: SEVOFLURANE INHAL SOLN 250 ML PEN BTL ONE (13:38)
[2021-06-12] MEDS ORDERED: PROPOFOL IV EMULSION 10 MG/ML 20 ML VIAL ONE (13:38)
[2021-06-12] MEDS ORDERED: ONDANSETRON HCL INJ 2MG/ML 2ML 2 MG/ML VIAL ONE (13:38)
[2021-06-12] MEDS ORDERED: EPHEDRINE SULFATE INJ 50 MG/ML VIAL ONE (13:38)
[2021-06-12] MEDS: CEFTRIAXONE 1 GM in SODIUM CHLORIDE 0.9% 50ML 50 ML IV SCH (14:48)
[2021-06-12] MEDS: CELECOXIB 200 MG CAP PO SCH ×2 (17:20→17:31)
[2021-06-12] MEDS ORDERED: ZOLPIDEM TARTRATE 5 MG TAB PO PRN (21:00)
[2021-06-13] VITALS (8 sets, daily range): BP systolic 110–128; BP diastolic 58–85
[2021-06-13] MEDS: SALINE 0.65% NAS SOLN 1 SPRAY BTL SCH ×4 (05:03→20:36)
[2021-06-13 05:45] LABS: BASOPHILS % 0.2 % (0.0-1.0); HEMATOCRIT 24.8 % (38.2-49.6); HEMOGLOBIN 7.5 g/dL (14.0-18.0); LYMPHOCYTES # (AUTO) 3.6 (1.0-3.2); LYMPHOCYTES % 18.1 % (18.0-39.1); MEAN CORPUSCULAR HEMOGLOBIN 26.3 pg (28-32); MEAN CORPUSCULAR HGB CONC 30.2 g/dL (31-35); MONOCYTES # (AUTO) 1.5 (0.2-0.8); MONOCYTES % 7.5 % (4.4-11.3); NEUTROPHILS # (AUTO) 14.6 (2.1-6.9); NEUTROPHILS % 72.4 % (38.7-80.0); PLATELET COUNT 114 x10e3/uL (140-360); RED BLOOD COUNT 2.85 x10e6/uL (4.3-5.7); RED CELL DISTRIBUTION WIDTH 15.8 % (11.7-14.4)
[2021-06-13 06:22] LABS: ALBUMIN 1.4 g/dL (3.5-5.0); ALBUMIN/GLOBULIN RATIO 0.4 (0.8-2.0); ANION GAP 15.6 mmol/L (8-16); CALCIUM 7.4 mg/dL (8.4-10.2); CREATININE, SERUM 1.63 mg/dL (0.72-1.25); POTASSIUM 5.6 mmol/L (3.5-5.1)
[2021-06-13] MEDS: OXYMETAZOLINE HCL 0.05% NAS 1 SPRAY BTL SCH (08:41)
[2021-06-13] MEDS: ASPIRIN 81 MG CHEW TAB PO SCH (08:41)
[2021-06-13] MEDS: SODIUM CHLORIDE 0.9% 1000ML 1,000 ML IV SCH ×2 (08:41→19:00)
[2021-06-13] MEDS: ATORVASTATIN 20 MG TAB PO SCH (08:42)
[2021-06-13] MEDS: CARVEDILOL 3.125 MG TAB PO SCH ×2 (08:42→17:28)
[2021-06-13] MEDS: FEBUXOSTAT 80 MG TAB PO SCH (08:42)
[2021-06-13] MEDS: FINASTERIDE 5 MG TAB PO SCH (08:42)
[2021-06-13] MEDS: CLOPIDOGREL BISULFATE 75 MG TAB PO SCH (08:42)
[2021-06-13] MEDS: POTASSIUM CITRATE ER 10 MEQ TAB PO SCH ×2 (08:42→17:00)
[2021-06-13] MEDS: TAMSULOSIN HCL 0.4 MG CAP PO SCH ×2 (08:42→17:28)
[2021-06-13] MEDS: BACITRACIN ZINC 15 GM OINT TOP SCH (08:42)
[2021-06-13] MEDS: AMLODIPINE BESYLATE 5 MG TAB PO SCH (08:42)
[2021-06-13] MEDS: MAGNESIUM OXIDE 400 MG TAB PO SCH (08:42)
[2021-06-13] MEDS: NEOMYCIN/POLYMYXIN/BACITRACIN 15 GM TUBE TOP SCH ×3 (09:02→20:35)
[2021-06-13] MEDS: INSULIN LISPRO 100 UNIT/1 ML 3ML VIAL SQ SCH ×3 (09:03→17:37)
[2021-06-13] MEDS ORDERED: ACETAMINOPHEN 1000 MG/100 ML IV PRN (13:00)
[2021-06-13] MEDS: CEFTRIAXONE 2 GM in SODIUM CHLORIDE 0.9% 100 ML IV SCH (15:26)
[2021-06-13] MEDS: CELECOXIB 200 MG CAP PO SCH (17:28)
[2021-06-14] VITALS (8 sets, daily range): BP systolic 105–124; BP diastolic 56–68
[2021-06-14] MEDS: SODIUM CHLORIDE 0.9% 1000ML 1,000 ML IV SCH ×3 (05:00→17:46)
[2021-06-14 05:23] LABS: BASOPHILS % 0.1 % (0.0-1.0); EOSINOPHILS # (AUTO) 0.1 (0.0-0.4); EOSINOPHILS % 0.7 % (0.0-6.0); LYMPHOCYTES # (AUTO) 3.9 (1.0-3.2); LYMPHOCYTES % 25.3 % (18.0-39.1); MEAN CORPUSCULAR HEMOGLOBIN 26.6 pg (28-32); MEAN CORPUSCULAR HGB CONC 30.7 g/dL (31-35); MEAN CORPUSCULAR VOLUME 86.5 fL (81-99); MONOCYTES # (AUTO) 1.6 (0.2-0.8); MONOCYTES % 10.2 % (4.4-11.3); NEUTROPHILS # (AUTO) 9.6 (2.1-6.9); NEUTROPHILS % 62.4 % (38.7-80.0); PLATELET COUNT 187 x10e3/uL (140-360); RED BLOOD COUNT 2.37 x10e6/uL (4.3-5.7); RED CELL DISTRIBUTION WIDTH 15.9 % (11.7-14.4)
[2021-06-14] MEDS: SALINE 0.65% NAS SOLN 1 SPRAY BTL SCH ×5 (05:31→21:08)
[2021-06-14 05:39] LABS: HEMATOCRIT 20.5 % (38.2-49.6); HEMOGLOBIN 6.3 g/dL (14.0-18.0)
[2021-06-14 05:43] LABS: ANION GAP 9.3 mmol/L (8-16); CALCIUM 7.2 mg/dL (8.4-10.2); CREATININE, SERUM 2.08 mg/dL (0.72-1.25); POTASSIUM 4.3 mmol/L (3.5-5.1)
[2021-06-14] MEDS ORDERED: SODIUM CHLORIDE 0.9% 250ML 250 ML IV ONE (05:45)
[2021-06-14] MEDS: ASPIRIN 81 MG CHEW TAB PO SCH (08:22)
[2021-06-14] MEDS: CELECOXIB 200 MG CAP PO SCH ×2 (08:22→17:36)
[2021-06-14] MEDS: OXYMETAZOLINE HCL 0.05% NAS 1 SPRAY BTL SCH (08:22)
[2021-06-14] MEDS: ATORVASTATIN 20 MG TAB PO SCH (08:23)
[2021-06-14] MEDS: FINASTERIDE 5 MG TAB PO SCH (08:23)
[2021-06-14] MEDS: CLOPIDOGREL BISULFATE 75 MG TAB PO SCH (08:23)
[2021-06-14] MEDS: CARVEDILOL 3.125 MG TAB PO SCH ×2 (08:23→17:36)
[2021-06-14] MEDS: TAMSULOSIN HCL 0.4 MG CAP PO SCH ×2 (08:23→17:36)
[2021-06-14] MEDS: MAGNESIUM OXIDE 400 MG TAB PO SCH (08:23)
[2021-06-14] MEDS: AMLODIPINE BESYLATE 5 MG TAB PO SCH (08:23)
[2021-06-14] MEDS: NEOMYCIN/POLYMYXIN/BACITRACIN 15 GM TUBE TOP SCH ×3 (08:23→21:00)
[2021-06-14] MEDS: FEBUXOSTAT 80 MG TAB PO SCH (08:23)
[2021-06-14] MEDS: INSULIN LISPRO 100 UNIT/1 ML 3ML VIAL SQ SCH ×3 (08:26→16:30)
[2021-06-14] MEDS ORDERED: ONDANSETRON HCL 4 MG ORAL DISINTEGRATING TAB PO PRN (10:45)
[2021-06-14] MEDS ORDERED: SODIUM CHLORIDE 0.9% 250ML 250 ML ONE (12:29)
[2021-06-14] MEDS ORDERED: METRONIDAZOLE 500 MG TAB PO SCH (14:00)
[2021-06-14] MEDS: CEFTRIAXONE 2 GM in SODIUM CHLORIDE 0.9% 100 ML IV SCH (15:35)
[2021-06-14] MEDS: VANCOMYCIN HCL 125 MG CAPSULE PO SCH (17:37)
[2021-06-15] VITALS (8 sets, daily range): BP systolic 118–139; BP diastolic 59–69
[2021-06-15] MEDS: VANCOMYCIN HCL 125 MG CAPSULE PO SCH ×5 (00:05→23:13)
[2021-06-15] MEDS: SODIUM CHLORIDE 0.9% 1000ML 1,000 ML IV SCH ×2 (00:18→10:35)
[2021-06-15] MEDS: SALINE 0.65% NAS SOLN 1 SPRAY BTL SCH ×5 (05:25→20:27)
[2021-06-15 06:25] LABS: ALBUMIN 1.3 g/dL (3.5-5.0); ALBUMIN/GLOBULIN RATIO 0.4 (0.8-2.0); ANION GAP 11.4 mmol/L (8-16); CALCIUM 7.1 mg/dL (8.4-10.2); CREATININE, SERUM 2.19 mg/dL (0.72-1.25); MAGNESIUM 1.4 MG/DL (1.3-2.1); POTASSIUM 4.4 mmol/L (3.5-5.1)
[2021-06-15 06:39] LABS: BASOPHILS % 0.2 % (0.0-1.0); EOSINOPHILS # (AUTO) 0.1 (0.0-0.4); HEMATOCRIT 23.3 % (38.2-49.6); LYMPHOCYTES # (AUTO) 3.5 (1.0-3.2); LYMPHOCYTES % 32.2 % (18.0-39.1); MONOCYTES # (AUTO) 1.1 (0.2-0.8); MONOCYTES % 9.9 % (4.4-11.3); NEUTROPHILS # (AUTO) 6.1 (2.1-6.9); NEUTROPHILS % 55.6 % (38.7-80.0); PLATELET COUNT 156 x10e3/uL (140-360); RED BLOOD COUNT 2.59 x10e6/uL (4.3-5.7); RED CELL DISTRIBUTION WIDTH 15.9 % (11.7-14.4)
[2021-06-15] MEDS: MAGNESIUM OXIDE 400 MG TAB PO SCH (07:55)
[2021-06-15] MEDS: FINASTERIDE 5 MG TAB PO SCH (07:55)
[2021-06-15] MEDS: CELECOXIB 200 MG CAP PO SCH ×2 (07:55→17:11)
[2021-06-15] MEDS: ASPIRIN 81 MG CHEW TAB PO SCH (07:55)
[2021-06-15] MEDS: OXYMETAZOLINE HCL 0.05% NAS 1 SPRAY BTL SCH (07:55)
[2021-06-15] MEDS: ATORVASTATIN 20 MG TAB PO SCH (07:55)
[2021-06-15] MEDS: TAMSULOSIN HCL 0.4 MG CAP PO SCH ×2 (07:55→17:11)
[2021-06-15] MEDS: FEBUXOSTAT 80 MG TAB PO SCH (07:55)
[2021-06-15] MEDS: CLOPIDOGREL BISULFATE 75 MG TAB PO SCH (07:55)
[2021-06-15] MEDS: AMLODIPINE BESYLATE 5 MG TAB PO SCH (07:55)
[2021-06-15] MEDS: CARVEDILOL 3.125 MG TAB PO SCH ×2 (07:56→17:11)
[2021-06-15] MEDS: NEOMYCIN/POLYMYXIN/BACITRACIN 15 GM TUBE TOP SCH ×3 (07:56→20:27)
[2021-06-15] MEDS: INSULIN LISPRO 100 UNIT/1 ML 3ML VIAL SQ SCH ×3 (07:57→16:37)
[2021-06-15] MEDS: CEFTRIAXONE 2 GM in SODIUM CHLORIDE 0.9% 100 ML IV SCH (14:11)
[2021-06-16] VITALS: BP 121/62
[2021-06-16 04:00] VITALS: BP 125/66
[2021-06-16] MEDS: SALINE 0.65% NAS SOLN 1 SPRAY BTL SCH ×2 (05:22→10:00)
[2021-06-16] MEDS: VANCOMYCIN HCL 125 MG CAPSULE PO SCH (05:22)
[2021-06-16 06:00] LABS: ALBUMIN 1.4 g/dL (3.5-5.0); ALBUMIN/GLOBULIN RATIO 0.4 (0.8-2.0); ANION GAP 11.6 mmol/L (8-16); CALCIUM 7.1 mg/dL (8.4-10.2); CREATININE, SERUM 2.31 mg/dL (0.72-1.25); POTASSIUM 4.6 mmol/L (3.5-5.1)
[2021-06-16 06:40] LABS: BASOPHILS % 0.3 % (0.0-1.0); EOSINOPHILS # (AUTO) 0.1 (0.0-0.4); EOSINOPHILS % 1.1 % (0.0-6.0); HEMOGLOBIN 7.2 g/dL (14.0-18.0); LYMPHOCYTES % 25.5 % (18.0-39.1); MEAN CORPUSCULAR VOLUME 89.9 fL (81-99); MONOCYTES % 8.1 % (4.4-11.3); NEUTROPHILS # (AUTO) 7.6 (2.1-6.9); NEUTROPHILS % 63.8 % (38.7-80.0); PLATELET COUNT 144 x10e3/uL (140-360); RED BLOOD COUNT 2.67 x10e6/uL (4.3-5.7); RED CELL DISTRIBUTION WIDTH 16.6 % (11.7-14.4)
[2021-06-16 08:00] VITALS: BP 133/72
[2021-06-16 08:50] VITALS: BP 133/72
[2021-06-16] MEDS: CARVEDILOL 3.125 MG TAB PO SCH (09:00)
[2021-06-16] MEDS: INSULIN LISPRO 100 UNIT/1 ML 3ML VIAL SQ SCH (09:00)
[2021-06-16] MEDS: FINASTERIDE 5 MG TAB PO SCH (09:00)
[2021-06-16] MEDS: TAMSULOSIN HCL 0.4 MG CAP PO SCH (09:00)
[2021-06-16] MEDS: OXYMETAZOLINE HCL 0.05% NAS 1 SPRAY BTL SCH (09:00)
[2021-06-16] MEDS: MAGNESIUM OXIDE 400 MG TAB PO SCH (09:00)
[2021-06-16] MEDS: FEBUXOSTAT 80 MG TAB PO SCH (09:00)
[2021-06-16] MEDS: ATORVASTATIN 20 MG TAB PO SCH (09:00)
[2021-06-16] MEDS: CELECOXIB 200 MG CAP PO SCH (09:00)
[2021-06-16] MEDS: AMLODIPINE BESYLATE 5 MG TAB PO SCH (09:00)
[2021-06-16] MEDS: ASPIRIN 81 MG CHEW TAB PO SCH (09:00)
[2021-06-16] MEDS: CLOPIDOGREL BISULFATE 75 MG TAB PO SCH (09:00)
[2021-06-16] MEDS: NEOMYCIN/POLYMYXIN/BACITRACIN 15 GM TUBE TOP SCH (09:42)
[2021-06-16 11:54] VITALS: BP 142/67
== END 2021-06-16 12:39 | DRG 853 ==
LOC: ER 21:42 → ERHOLD 23:31 → MED/SURG3 06-06 00:59
PROVIDERS: ADMIT Internal Medicine; ATTEND Internal Medicine
PROC: 0S9C3ZX Drainage of Right Knee Joint, Percutaneous Approach, Diagnostic (ICD-10-PCS; 2021-06-06)
PROC: 0SBC4ZZ Excision of Right Knee Joint, Percutaneous Endoscopic Approach (ICD-10-PCS; principal; 2021-06-07 12:31)
PROC: 0SRC0J9 Replacement of Right Knee Joint with Synthetic Substitute, Cemented, Open Approach (ICD-10-PCS; 2021-06-12)
PROC: 093K7ZZ Control Bleeding in Nasal Mucosa and Soft Tissue, Via Natural or Artificial Opening (ICD-10-PCS; 2021-06-12)
PROC: 02HV33Z Insertion of Infusion Device into Superior Vena Cava, Percutaneous Approach (ICD-10-PCS; 2021-06-14)
PROC: 30233N1 Transfusion of Nonautologous Red Blood Cells into Peripheral Vein, Percutaneous Approach (ICD-10-PCS; 2021-06-14)
DX: A41.51 Sepsis due to Escherichia coli [E. coli] (principal); L89.153 Pressure ulcer of sacral region, stage 3; J96.01 Acute respiratory failure with hypoxia; M00.9 Pyogenic arthritis, unspecified; N17.9 Acute kidney failure, unspecified; J21.9 Acute bronchiolitis, unspecified; N39.0 Urinary tract infection, site not specified; M86.18 Other acute osteomyelitis, other site; A04.72 Enterocolitis due to Clostridium difficile, not specified as recurrent; R65.20 Severe sepsis without septic shock; E87.5 Hyperkalemia; D64.9 Anemia, unspecified; E11.22 Type 2 diabetes mellitus with diabetic chronic kidney disease; I12.9 Hypertensive chronic kidney disease with stage 1 through stage 4 chronic kidney disease, or unspecified chronic kidney disease; N18.30 Chronic kidney disease, stage 3 unspecified; I25.10 Atherosclerotic heart disease of native coronary artery without angina pectoris; E78.5 Hyperlipidemia, unspecified; Z82.49 Family history of ischemic heart disease and other diseases of the circulatory system; G47.33 Obstructive sleep apnea (adult) (pediatric); M10.9 Gout, unspecified; E66.9 Obesity, unspecified; Z68.33 Body mass index [BMI] 33.0-33.9, adult; M25.461 Effusion, right knee; B96.20 Unspecified Escherichia coli [E. coli] as the cause of diseases classified elsewhere; R04.0 Epistaxis; J34.2 Deviated nasal septum; Z88.1 Allergy status to other antibiotic agents; Z88.8 Allergy status to other drugs, medicaments and biological substances; Z20.822 Contact with and (suspected) exposure to COVID-19; Z79.82 Long term (current) use of aspirin; Z79.4 Long term (current) use of insulin
CPT/HCPCS: 36415; 36569; 70450; 71045; 71250; 74176; 80048; 80053; 81001; 82550; 82553; 82948; 83605; 83735; 83880; 84484; 85025; 85610; 85730; 86850; 86900; 86920; 87040; 87070; 87086; 87186; 87205; 87493; 89051; 93005; 96360; 96361; 97139; 99251; 99285; C1713; C1776; J0456; J0692; J0696; J1100; J1170; J1885; J2001; J2185; J2405; J3010; J3370; J7030; J7050; P9016; U0002

== ENCOUNTER 2021-10-27 19:38 | Emergency (ER) | payer MEDICARE, BC ==
[~2021-10-27] VITALS: Ht 185.4 cm; Wt 113.4 kg
[2021-10-27] MEDS ORDERED: CEFTRIAXONE 1 GM in SODIUM CHLORIDE 0.9% 50ML 50 ML IV ONE (19:45)
[2021-10-27] MEDS ORDERED: SODIUM CHLORIDE 0.9% 1000ML 1,000 ML IV ONE (19:45)
[2021-10-27] MEDS ORDERED: ONDANSETRON HCL INJ 2MG/ML 2ML 2 MG/ML VIAL IV STA (20:03)
[2021-10-27] MEDS ORDERED: CEFTRIAXONE 1 GM VIAL ONE (20:08)
[2021-10-27 20:11] LABS: BASOPHILS % 0.4 % (0.0-1.0); EOSINOPHILS # (AUTO) 0.1 (0.0-0.4); HEMATOCRIT 31.1 % (38.2-49.6); HEMOGLOBIN 9.7 g/dL (14.0-18.0); LYMPHOCYTES # (AUTO) 1.4 (1.0-3.2); LYMPHOCYTES % 28.7 % (18.0-39.1); MEAN CORPUSCULAR HEMOGLOBIN 28.6 pg (28-32); MEAN CORPUSCULAR HGB CONC 31.2 g/dL (31-35); MEAN CORPUSCULAR VOLUME 91.7 fL (81-99); MONOCYTES # (AUTO) 0.7 (0.2-0.8); MONOCYTES % 14.5 % (4.4-11.3); NEUTROPHILS # (AUTO) 2.4 (2.1-6.9); NEUTROPHILS % 51.9 % (38.7-80.0); PLATELET COUNT 104 x10e3/uL (140-360); RED BLOOD COUNT 3.39 x10e6/uL (4.3-5.7); RED CELL DISTRIBUTION WIDTH 16.5 % (11.7-14.4)
[2021-10-27] MEDS ORDERED: ONDANSETRON HCL INJ 2MG/ML 2ML 2 MG/ML VIAL ONE (20:13)
[2021-10-27 20:18] LABS: CLARITY,URINE HAZY (CLEAR); COLOR,URINE YELLOW (YELLOW)
[2021-10-27 20:19] LABS: KETONES,URINE NEGATIVE (NEGATIVE); LEUKOCYTE ESTERASE ,URINE SMALL (NEGATIVE); NITRITE,URINE NEGATIVE (NEGATIVE); PROTEIN,URINE DIPSTICK 2+ (NEGATIVE); URINE UROBILINOGEN 0.2 mg/dL (0.2 - 1)
[2021-10-27 20:29] LABS: RBC,URINE 0-5 /HPF (0-5); WBC,URINE (MAN) 21-50 /HPF (0-5)
[2021-10-27 20:30] LABS: BACTERIA,URINE MODERATE /HPF
[2021-10-27 20:30] LABS: ALBUMIN 2.6 g/dL (3.5-5.0); ALBUMIN/GLOBULIN RATIO 0.6 (0.8-2.0); ANION GAP 13.1 mmol/L (8-16); CREATININE, SERUM 2.83 mg/dL (0.72-1.25); POTASSIUM 5.1 mmol/L (3.5-5.1)
[2021-10-27] MEDS ORDERED: FLUCONAZOLE100 MG PO (20:34)
[2021-10-27] MEDS ORDERED: CEFDINIR300 MG PO (20:35)
== END 2021-10-27 23:45 | disposition home or self-care (01) ==
LOC: ER 19:43
DX: R50.9 Fever, unspecified (principal); N39.0 Urinary tract infection, site not specified; E11.65 Type 2 diabetes mellitus with hyperglycemia; I10 Essential (primary) hypertension; J44.9 Chronic obstructive pulmonary disease, unspecified; E78.5 Hyperlipidemia, unspecified; N18.9 Chronic kidney disease, unspecified; D64.9 Anemia, unspecified; M10.9 Gout, unspecified; Z20.822 Contact with and (suspected) exposure to COVID-19
CPT/HCPCS: 36415; 51700; 71045; 80053; 81001; 83605; 84484; 85025; 87040; 87086; 87186; 93005; 99284; J0696; J2405; J7030; U0002

== ENCOUNTER 2021-12-29 07:24 | Emergency (ER) | payer MEDICARE, BC ==
[~2021-12-29] VITALS: Ht 185.4 cm; Wt 113.4 kg
[~2021-12-29 07:24] MED LIST changes: +CEFDINIR300 MG PO; +FLUCONAZOLE100 MG PO
[2021-12-29 08:19] LABS: CLARITY,URINE TURBID (CLEAR); COLOR,URINE YELLOW (YELLOW); KETONES,URINE NEGATIVE (NEGATIVE); LEUKOCYTE ESTERASE ,URINE LARGE (NEGATIVE); NITRITE,URINE NEGATIVE (NEGATIVE); PROTEIN,URINE DIPSTICK 2+ (NEGATIVE); URINE UROBILINOGEN 0.2 mg/dL (0.2 - 1); WBC,URINE (MAN) >50 /HPF (0-5)
[2021-12-29 08:20] LABS: BACTERIA,URINE MODERATE /HPF; EPITHELIAL CELLS,URINE RARE /LPF; RBC,URINE >50 /HPF (0-5)
== END 2021-12-29 09:34 | disposition home or self-care (01) ==
LOC: ER 07:30
DX: Z46.6 Encounter for fitting and adjustment of urinary device (principal); N39.0 Urinary tract infection, site not specified; R10.30 Lower abdominal pain, unspecified; I12.9 Hypertensive chronic kidney disease with stage 1 through stage 4 chronic kidney disease, or unspecified chronic kidney disease; E11.22 Type 2 diabetes mellitus with diabetic chronic kidney disease; N18.9 Chronic kidney disease, unspecified; J44.9 Chronic obstructive pulmonary disease, unspecified; I25.10 Atherosclerotic heart disease of native coronary artery without angina pectoris; E78.5 Hyperlipidemia, unspecified; M10.9 Gout, unspecified; Z95.5 Presence of coronary angioplasty implant and graft
CPT/HCPCS: 51700; 81001; 87086; 87186; 99284

== ENCOUNTER 2022-02-20 12:57 | Emergency (ER) | payer BC, MEDICARE ==
[~2022-02-20] VITALS: Ht 182.9 cm; Wt 113.4 kg
[2022-02-20 15:14] LABS: BASOPHILS # (AUTO) 0.1 (0.0-0.1); BASOPHILS % 0.6 % (0.0-1.0); HEMATOCRIT 39.7 % (38.2-49.6); HEMOGLOBIN 11.7 g/dL (14.0-18.0); LYMPHOCYTES # (AUTO) 2.4 (1.0-3.2); LYMPHOCYTES % 22.9 % (18.0-39.1); MEAN CORPUSCULAR HEMOGLOBIN 27.3 pg (28-32); MEAN CORPUSCULAR HGB CONC 29.5 g/dL (31-35); MEAN CORPUSCULAR VOLUME 92.5 fL (81-99); MONOCYTES # (AUTO) 1.3 (0.2-0.8); MONOCYTES % 12.5 % (4.4-11.3); NEUTROPHILS # (AUTO) 6.8 (2.1-6.9); NEUTROPHILS % 63.6 % (38.7-80.0); PLATELET COUNT 120 x10e3/uL (140-360); RED BLOOD COUNT 4.29 x10e6/uL (4.3-5.7); RED CELL DISTRIBUTION WIDTH 18.4 % (11.7-14.4)
[2022-02-20 15:27] LABS: ANION GAP 14.4 mmol/L (8-16); CALCIUM 9.9 mg/dL (8.4-10.2); CREATININE, SERUM 3.27 mg/dL (0.72-1.25); POTASSIUM 4.4 mmol/L (3.5-5.1)
[2022-02-20 15:39] LABS: CLARITY,URINE TURBID (CLEAR); COLOR,URINE YELLOW (YELLOW); KETONES,URINE NEGATIVE (NEGATIVE); LEUKOCYTE ESTERASE ,URINE LARGE (NEGATIVE); NITRITE,URINE NEGATIVE (NEGATIVE); PROTEIN,URINE DIPSTICK 2+ (NEGATIVE); URINE UROBILINOGEN 0.2 mg/dL (0.2 - 1)
[2022-02-20] MEDS ORDERED: CEFPODOXIME PR100 MG PO (15:39)
[2022-02-20 15:40] LABS: AMORPHOUS SEDIMENT,URINE MODERATE (FEW); BACTERIA,URINE MODERATE /HPF
== END 2022-02-20 18:20 | disposition home or self-care (01) ==
LOC: EDBD 12:57 → ER 12:58 → MERGE 12:58 → ER 18:20
DX: Z46.6 Encounter for fitting and adjustment of urinary device (principal); N39.0 Urinary tract infection, site not specified; E11.22 Type 2 diabetes mellitus with diabetic chronic kidney disease; E11.65 Type 2 diabetes mellitus with hyperglycemia; N18.9 Chronic kidney disease, unspecified; R14.0 Abdominal distension (gaseous); Z74.01 Bed confinement status
CPT/HCPCS: 36415; 51700; 80048; 81001; 85025; 99284

== ENCOUNTER 2022-03-26 17:18 | Inpatient (IN) | payer MEDICARE, BC ==
[~2022-03-26] VITALS: Ht 185.4 cm; Wt 108.9 kg
[~2022-03-26 17:18] MED LIST changes: -HYDROCORTISONE10 MG PO
[2022-03-26 18:34] LABS: CALCIUM 9.2 mg/dL (8.4-10.2); CREATININE, SERUM 3.2 mg/dL (0.72-1.25)
[2022-03-26] MEDS ORDERED: FUROSEMIDE INJ 10 MG/ML 4 ML VIAL IV STA (19:56)
[2022-03-26] MEDS ORDERED: DEXTROSE 50% SYRINGE 50 ML IV STA (19:56)
[2022-03-26] MEDS ORDERED: INSULIN REGULAR, HUMAN 100 UNIT/1 ML IV STA (19:56)
[2022-03-26 20:00] VITALS: BP 127/69
[2022-03-26] MEDS: SODIUM CHLORIDE 0.9% 1000ML 1,000 ML IV SCH (20:50)
[2022-03-26 23:09] VITALS: BP 135/72
[2022-03-27] VITALS (7 sets, daily range): BP systolic 122–137; BP diastolic 66–86
[2022-03-27] MEDS: SODIUM CHLORIDE 0.9% 1000ML 1,000 ML IV SCH ×3 (03:00→19:00)
[2022-03-27] MEDS ORDERED: HYDROCORTISONE10 MG PO (05:01)
[2022-03-27 06:34] LABS: BASOPHILS # (AUTO) 0.1 (0.0-0.1); BASOPHILS % 0.8 % (0.0-1.0); HEMATOCRIT 37.1 % (38.2-49.6); HEMOGLOBIN 11.7 g/dL (14.0-18.0); LYMPHOCYTES % 37.1 % (18.0-39.1); MEAN CORPUSCULAR HEMOGLOBIN 28.1 pg (28-32); MEAN CORPUSCULAR HGB CONC 31.5 g/dL (31-35); MEAN CORPUSCULAR VOLUME 89.2 fL (81-99); MONOCYTES # (AUTO) 0.8 (0.2-0.8); MONOCYTES % 10.4 % (4.4-11.3); NEUTROPHILS # (AUTO) 4.1 (2.1-6.9); NEUTROPHILS % 51.2 % (38.7-80.0); PLATELET COUNT 116 x10e3/uL (140-360); RED BLOOD COUNT 4.16 x10e6/uL (4.3-5.7); RED CELL DISTRIBUTION WIDTH 17.4 % (11.7-14.4)
[2022-03-27 07:06] LABS: ANION GAP 14.4 mmol/L (8-16); CALCIUM 8.6 mg/dL (8.4-10.2); CREATININE, SERUM 3.06 mg/dL (0.72-1.25); POTASSIUM 4.4 mmol/L (3.5-5.1)
[2022-03-27] MEDS: FEBUXOSTAT 80 MG TAB PO SCH (08:59)
[2022-03-27] MEDS: LIOTHYRONINE SODIUM 5 MCG TAB PO SCH ×2 (08:59→15:55)
[2022-03-27] MEDS: CARVEDILOL 3.125 MG TAB PO SCH ×2 (08:59→15:55)
[2022-03-27] MEDS: TAMSULOSIN HCL 0.4 MG CAP PO SCH (08:59)
[2022-03-27] MEDS: FINASTERIDE 5 MG TAB PO SCH (08:59)
[2022-03-27] MEDS ORDERED: BEBTELOVIMAB 175 MG INJ IV ONE (14:30)
[2022-03-27] MEDS: HYDROCODONE/APAP 10MG-325MG TAB PO PRN (15:58)
[2022-03-28] VITALS (8 sets, daily range): BP systolic 128–159; BP diastolic 61–87
[2022-03-28] MEDS: HYDROCODONE/APAP 10MG-325MG TAB PO PRN ×2 (01:59→09:04)
[2022-03-28] MEDS: SODIUM CHLORIDE 0.9% 1000ML 1,000 ML IV SCH ×2 (03:41→11:25)
[2022-03-28 06:17] LABS: BASOPHILS % 0.5 % (0.0-1.0); HEMATOCRIT 37.2 % (38.2-49.6); HEMOGLOBIN 11.3 g/dL (14.0-18.0); LYMPHOCYTES # (AUTO) 2.8 (1.0-3.2); LYMPHOCYTES % 35.7 % (18.0-39.1); MEAN CORPUSCULAR HEMOGLOBIN 28.2 pg (28-32); MEAN CORPUSCULAR HGB CONC 30.4 g/dL (31-35); MEAN CORPUSCULAR VOLUME 92.8 fL (81-99); MONOCYTES # (AUTO) 0.8 (0.2-0.8); MONOCYTES % 10.5 % (4.4-11.3); NEUTROPHILS # (AUTO) 4.2 (2.1-6.9); NEUTROPHILS % 52.8 % (38.7-80.0); PLATELET COUNT 138 x10e3/uL (140-360); RED BLOOD COUNT 4.01 x10e6/uL (4.3-5.7); RED CELL DISTRIBUTION WIDTH 17.2 % (11.7-14.4)
[2022-03-28 07:06] LABS: ALBUMIN 2.6 g/dL (3.5-5.0); ALBUMIN/GLOBULIN RATIO 0.6 (0.8-2.0); ANION GAP 14.6 mmol/L (8-16); CALCIUM 8.4 mg/dL (8.4-10.2); CREATININE, SERUM 3.32 mg/dL (0.72-1.25); POTASSIUM 5.6 mmol/L (3.5-5.1)
[2022-03-28] MEDS: TAMSULOSIN HCL 0.4 MG CAP PO SCH (08:52)
[2022-03-28] MEDS: FINASTERIDE 5 MG TAB PO SCH (08:53)
[2022-03-28] MEDS: LIOTHYRONINE SODIUM 5 MCG TAB PO SCH ×2 (08:53→17:31)
[2022-03-28] MEDS: CARVEDILOL 3.125 MG TAB PO SCH ×2 (08:53→17:31)
[2022-03-28] MEDS: FEBUXOSTAT 80 MG TAB PO SCH (08:53)
[2022-03-28] MEDS ORDERED: LACTULOSE SYRUP 20 GM/30 ML UDC PO ONE (11:00)
[2022-03-28] MEDS ORDERED: SOD POLYSTYRENE SULFONATE SUSP 15 GM/60 ML BTL PO ONE (11:00)
[2022-03-28] MEDS: DEXTROSE 5% 1,000 ML IV SCH (17:25)
[2022-03-29] MEDS: HYDROCODONE/APAP 10MG-325MG TAB PO PRN ×2 (00:22→12:46)
[2022-03-29] MEDS: DEXTROSE 5% 1,000 ML IV SCH (00:25)
[2022-03-29 00:50] VITALS: BP 146/85
[2022-03-29 05:14] LABS: BASOPHILS % 0.5 % (0.0-1.0); HEMATOCRIT 35.4 % (38.2-49.6); HEMOGLOBIN 11.3 g/dL (14.0-18.0); LYMPHOCYTES # (AUTO) 2.4 (1.0-3.2); LYMPHOCYTES % 32.1 % (18.0-39.1); MEAN CORPUSCULAR HEMOGLOBIN 28.4 pg (28-32); MEAN CORPUSCULAR HGB CONC 31.9 g/dL (31-35); MEAN CORPUSCULAR VOLUME 88.9 fL (81-99); MONOCYTES # (AUTO) 0.9 (0.2-0.8); MONOCYTES % 12.6 % (4.4-11.3); NEUTROPHILS % 54.3 % (38.7-80.0); PLATELET COUNT 112 x10e3/uL (140-360); RED BLOOD COUNT 3.98 x10e6/uL (4.3-5.7); RED CELL DISTRIBUTION WIDTH 16.9 % (11.7-14.4)
[2022-03-29 06:07] LABS: ALBUMIN 2.3 g/dL (3.5-5.0); ALBUMIN/GLOBULIN RATIO 0.5 (0.8-2.0); ANION GAP 11.9 mmol/L (8-16); CALCIUM 7.7 mg/dL (8.4-10.2); CREATININE, SERUM 2.77 mg/dL (0.72-1.25); POTASSIUM 3.9 mmol/L (3.5-5.1)
[2022-03-29] MEDS: LIOTHYRONINE SODIUM 5 MCG TAB PO SCH (08:16)
[2022-03-29] MEDS: FEBUXOSTAT 80 MG TAB PO SCH (08:16)
[2022-03-29] MEDS: TAMSULOSIN HCL 0.4 MG CAP PO SCH (08:16)
[2022-03-29] MEDS: FINASTERIDE 5 MG TAB PO SCH (08:16)
[2022-03-29] MEDS: CARVEDILOL 3.125 MG TAB PO SCH (08:27)
[2022-03-29 08:54] VITALS: BP 128/53
[2022-03-29 09:07] VITALS: BP 128/53
[2022-03-29 11:00] LABS: CREATININE,URINE RANDOM 24.19 mg/dL (63-166); TOTAL PROTEIN, URINE 41.5 mg/dL (1-14)
== END 2022-03-29 13:00 | disposition home or self-care (01) | DRG 178 ==
LOC: ER 17:27 → ERHOLD 19:00 → MED/SURG3 21:52 → OBSVTOIN 03-27 08:07
PROVIDERS: ADMIT Internal Medicine; ATTEND Internal Medicine
PROC: 8E0ZXY6 Isolation (ICD-10-PCS; principal; 2022-03-27)
DX: U07.1 COVID-19 (principal); N17.9 Acute kidney failure, unspecified; N18.4 Chronic kidney disease, stage 4 (severe); E87.5 Hyperkalemia; N40.0 Benign prostatic hyperplasia without lower urinary tract symptoms; E11.22 Type 2 diabetes mellitus with diabetic chronic kidney disease; I12.9 Hypertensive chronic kidney disease with stage 1 through stage 4 chronic kidney disease, or unspecified chronic kidney disease; Z79.899 Other long term (current) drug therapy; E66.9 Obesity, unspecified; Z68.31 Body mass index [BMI] 31.0-31.9, adult; D64.9 Anemia, unspecified; N40.1 Benign prostatic hyperplasia with lower urinary tract symptoms; N39.41 Urge incontinence; N20.0 Calculus of kidney; N32.81 Overactive bladder; N31.2 Flaccid neuropathic bladder, not elsewhere classified; E87.8 Other disorders of electrolyte and fluid balance, not elsewhere classified; D69.6 Thrombocytopenia, unspecified; Z74.01 Bed confinement status; Z96.659 Presence of unspecified artificial knee joint; I25.10 Atherosclerotic heart disease of native coronary artery without angina pectoris; Z95.5 Presence of coronary angioplasty implant and graft; M10.9 Gout, unspecified
CPT/HCPCS: 36415; 71045; 76770; 80048; 80053; 82570; 82948; 84156; 84550; 85025; 93005; 99251; 99284; G0378; J1817; J1940; J7030; J7070; J7799

== ENCOUNTER → 2022-03-26 | Outpatient (CLI) | payer MEDICARE, BC ==
[~2022-03-26] MED LIST changes: +ACETYL PO; +ALPHA LIPOIC A200 MG PO; +CEFPODOXIME PR100 MG PO; +COLACE100 MG/10 PO; +COQ-10100 MG PO; +DHEA50 MG PO; +HYDROCORTISONE10 MG PO; +JUVEN PACKET1 EACH PO; +KRILL OIL500 MG PO; +LINZESS145 MCG PO; +LIOTHYRONINE SO5 MCG PO; +MELATONIN3 M2 PO; +SERTRALINE HCL25 MG PO; +TURMERIC500 M1 PO; +VITAMIN B COMP1 EACH PO; +[UNRECOGNIZED DRUG - OTHER] PO; +[UNRECOGNIZED DRUG - OTHER] PO
[2022-03-26 15:47] LABS: BASOPHILS # (AUTO) 0.1 (0.0-0.1); BASOPHILS % 0.8 % (0.0-1.0); HEMATOCRIT 39.5 % (38.2-49.6); LYMPHOCYTES # (AUTO) 2.6 (1.0-3.2); LYMPHOCYTES % 32.7 % (18.0-39.1); MEAN CORPUSCULAR HGB CONC 30.4 g/dL (31-35); MEAN CORPUSCULAR VOLUME 92.3 fL (81-99); MONOCYTES # (AUTO) 0.7 (0.2-0.8); NEUTROPHILS # (AUTO) 4.5 (2.1-6.9); NEUTROPHILS % 57.1 % (38.7-80.0); PLATELET COUNT 155 x10e3/uL (140-360); RED BLOOD COUNT 4.28 x10e6/uL (4.3-5.7); RED CELL DISTRIBUTION WIDTH 17.7 % (11.7-14.4)
[2022-03-26 15:56] LABS: INR 0.98; PROTHROMBIN TIME 13.9 seconds (11.9-14.5)
[2022-03-26 15:57] LABS: PARTIAL THROMBOPLASTIN TIME 29.8 seconds (23.8-35.5)
[2022-03-26 16:10] LABS: ALBUMIN 2.8 g/dL (3.5-5.0); ALBUMIN/GLOBULIN RATIO 0.6 (0.8-2.0); ANION GAP 14.5 mmol/L (8-16); CREATININE, SERUM 3.21 mg/dL (0.72-1.25)
[2022-03-26 16:11] LABS: POTASSIUM 5.5 mmol/L (3.5-5.1)
== END ==
LOC: LAB 15:12 → EDSTATUS 03-28 10:30
PROVIDERS: ATTEND Urology
DX: Z01.810 Encounter for preprocedural cardiovascular examination (principal); Z01.812 Encounter for preprocedural laboratory examination; R33.9 Retention of urine, unspecified; N39.0 Urinary tract infection, site not specified
CPT/HCPCS: 0223U; 36415; 80053; 85025; 85610; 85730; 93005

== ENCOUNTER 2022-05-05 09:00 | Inpatient (IN) | payer MEDICARE, BC ==
[~2022-05-05] VITALS: Ht 185.4 cm; Wt 94.8 kg
[~2022-05-05 09:00] MED LIST changes: +HYDROCORTISONE10 MG PO
[2022-05-05] MEDS ORDERED: CEFTRIAXONE 1 GM VIAL IV STA (09:15)
[2022-05-05] MEDS ORDERED: SODIUM CHLORIDE 0.9% 1000ML 1,000 ML IV ONE (09:15)
[2022-05-05 09:53] LABS: BASOPHILS # (AUTO) 0.1 (0.0-0.1); BASOPHILS % 0.6 % (0.0-1.0); HEMATOCRIT 35.9 % (38.2-49.6); HEMOGLOBIN 10.9 g/dL (14.0-18.0); LYMPHOCYTES # (AUTO) 2.7 (1.0-3.2); MEAN CORPUSCULAR HEMOGLOBIN 29.1 pg (28-32); MEAN CORPUSCULAR HGB CONC 30.4 g/dL (31-35); MEAN CORPUSCULAR VOLUME 95.7 fL (81-99); MONOCYTES # (AUTO) 0.9 (0.2-0.8); MONOCYTES % 9.3 % (4.4-11.3); PLATELET COUNT 122 x10e3/uL (140-360); RED BLOOD COUNT 3.75 x10e6/uL (4.3-5.7); RED CELL DISTRIBUTION WIDTH 15.2 % (11.7-14.4)
[2022-05-05 10:20] LABS: INR 1.02; PROTHROMBIN TIME 14.3 seconds (11.9-14.5)
[2022-05-05 10:30] LABS: CLARITY,URINE CLOUDY (CLEAR); COLOR,URINE YELLOW (YELLOW)
[2022-05-05 10:31] LABS: KETONES,URINE NEGATIVE (NEGATIVE); LEUKOCYTE ESTERASE ,URINE LARGE (NEGATIVE); NITRITE,URINE NEGATIVE (NEGATIVE); PROTEIN,URINE DIPSTICK 1+ (NEGATIVE); RBC,URINE >50 /HPF (0-5); URINE UROBILINOGEN 0.2 mg/dL (0.2 - 1); WBC,URINE (MAN) >50 /HPF (0-5)
[2022-05-05 10:32] LABS: BACTERIA,URINE MODERATE /HPF
[2022-05-05 11:21] LABS: ALANINE AMINOTRANSFERASE 16 IU/L (0-55); ALBUMIN 2.7 g/dL (3.5-5.0); ALBUMIN/GLOBULIN RATIO 0.8 (0.8-2.0); ALKALINE PHOSPHATASE 54 IU/L (40-150); ANION GAP 13.5 mmol/L (8-16); BLOOD UREA NITROGEN 95 mg/dL (7-26); BUN/CREATININE RATIO 25 (6-25); CALCIUM 8.6 mg/dL (8.4-10.2); CARBON DIOXIDE 18 mmol/L (22-29); CHLORIDE 115 mmol/L (98-107); CREATININE, SERUM 3.81 mg/dL (0.72-1.25); GLUCOSE 105 mg/dL (74-118); POTASSIUM 5.5 mmol/L (3.5-5.1); SODIUM 141 mmol/L (136-145)
[2022-05-05] MEDS ORDERED: DEXTROSE 50% SYRINGE 50 ML IV STA (11:41)
[2022-05-05] MEDS ORDERED: INSULIN REGULAR, HUMAN 100 UNIT/1 ML IV ONE (11:45)
[2022-05-05] MEDS ORDERED: SODIUM BICARBONATE 8.4% INJ 50 ML SYR IV STA (11:56)
[2022-05-05] MEDS ORDERED: SODIUM CHLORIDE 0.9% 1000ML 2,790 ML IV SCH (12:00)
[2022-05-05] MEDS ORDERED: SODIUM BICARBONATE 8.4% SYRING 50 ML ONE (12:13)
[2022-05-05] MEDS: SODIUM CHLORIDE 0.9% 1000ML 1,000 ML IV SCH ×2 (12:22→18:15)
[2022-05-05] MEDS: CALCIUM GLUC 1 G/50 ML NACL 50 ML IV SCH ×2 (12:23→12:24)
[2022-05-05 15:39] VITALS: BP 128/66
[2022-05-05 17:26] VITALS: BP 128/66
[2022-05-05] MEDS: IPRATROPIUM BROMIDE 0.02% 2.5 ML NEB NEB SCH ×2 (19:00→23:00)
[2022-05-05 20:00] VITALS: BP 128/58
[2022-05-05 21:30] VITALS: BP 128/58
[2022-05-06] VITALS (79 sets, daily range): BP systolic 73–155; BP diastolic 47–77
[2022-05-06] MEDS ORDERED: ASPIRIN 81 MG CHEW TAB PO ONE (02:30)
[2022-05-06 02:57] LABS: BASOPHILS # (AUTO) 0.1 (0.0-0.1); BASOPHILS % 0.5 % (0.0-1.0); HEMATOCRIT 39.2 % (38.2-49.6); HEMOGLOBIN 11.5 g/dL (14.0-18.0); LYMPHOCYTES # (AUTO) 1.3 (1.0-3.2); LYMPHOCYTES % 11.2 % (18.0-39.1); MEAN CORPUSCULAR HEMOGLOBIN 28.7 pg (28-32); MEAN CORPUSCULAR HGB CONC 29.3 g/dL (31-35); MEAN CORPUSCULAR VOLUME 97.8 fL (81-99); MONOCYTES # (AUTO) 0.7 (0.2-0.8); MONOCYTES % 5.9 % (4.4-11.3); NEUTROPHILS # (AUTO) 9.4 (2.1-6.9); NEUTROPHILS % 81.5 % (38.7-80.0); PLATELET COUNT 75 x10e3/uL (140-360); RED BLOOD COUNT 4.01 x10e6/uL (4.3-5.7); RED CELL DISTRIBUTION WIDTH 15.5 % (11.7-14.4)
[2022-05-06] MEDS: IPRATROPIUM BROMIDE 0.02% 2.5 ML NEB NEB SCH ×6 (03:00→22:47)
[2022-05-06 03:15] LABS: ALBUMIN 2.9 g/dL (3.5-5.0); ALBUMIN/GLOBULIN RATIO 0.6 (0.8-2.0); ANION GAP 17.8 mmol/L (8-16); CALCIUM 9.3 mg/dL (8.4-10.2); CREATININE, SERUM 3.92 mg/dL (0.72-1.25)
[2022-05-06 03:27] LABS: POTASSIUM 6.8 mmol/L (3.5-5.1)
[2022-05-06 04:02] LABS: ABG HCO3 17 mmol/L (22-26); ABG PCO2 59 mmHg (35-45); ABG PH 7.07 (7.35-7.45); ABG PO2 514 mmHg (80-105); ABG TCO2 19
[2022-05-06] MEDS ORDERED: DEXTROSE 50% SYRINGE 50 ML IV STA (04:14)
[2022-05-06] MEDS ORDERED: SODIUM BICARBONATE 8.4% INJ 50 ML SYR IV STA ×2 (04:14→06:16)
[2022-05-06] MEDS ORDERED: CALCIUM CHLORIDE IV ONE (04:15)
[2022-05-06] MEDS ORDERED: INSULIN REGULAR, HUMAN 100 UNIT/1 ML IV ONE (04:15)
[2022-05-06] MEDS ORDERED: SODIUM CHLORIDE 0.9% IV ONE (04:15)
[2022-05-06] MEDS ORDERED: SOD POLYSTYRENE SULFONATE SUSP 15 GM/60 ML BTL NG ONE (04:15)
[2022-05-06] MEDS ORDERED: CALCIUM CHLORIDE 10% 1.36 MEQ/ML 10ML SYR IV ONE (04:45)
[2022-05-06] MEDS ORDERED: SOD POLYSTYRENE SULFONATE SUSP 15 GM/60 ML BTL ONE (05:58)
[2022-05-06] MEDS ORDERED: DEXTROSE 50% SYRINGE 50 ML IV PRN (06:30)
[2022-05-06 07:08] LABS: BASOPHILS % 0.1 % (0.0-1.0); HEMOGLOBIN 10.6 g/dL (14.0-18.0); LYMPHOCYTES # (AUTO) 1.1 (1.0-3.2); LYMPHOCYTES % 9.6 % (18.0-39.1); MEAN CORPUSCULAR HEMOGLOBIN 28.5 pg (28-32); MEAN CORPUSCULAR HGB CONC 30.3 g/dL (31-35); MEAN CORPUSCULAR VOLUME 94.1 fL (81-99); MONOCYTES % 8.2 % (4.4-11.3); NEUTROPHILS # (AUTO) 9.7 (2.1-6.9); NEUTROPHILS % 81.7 % (38.7-80.0); PLATELET COUNT 103 x10e3/uL (140-360); RED BLOOD COUNT 3.72 x10e6/uL (4.3-5.7); RED CELL DISTRIBUTION WIDTH 15.3 % (11.7-14.4)
[2022-05-06 07:26] LABS: ALBUMIN 2.7 g/dL (3.5-5.0); ALBUMIN/GLOBULIN RATIO 0.8 (0.8-2.0); ANION GAP 16.5 mmol/L (8-16); CALCIUM 9.7 mg/dL (8.4-10.2); CREATININE, SERUM 3.75 mg/dL (0.72-1.25); POTASSIUM 5.5 mmol/L (3.5-5.1)
[2022-05-06] MEDS ORDERED: PROPOFOL IV EMULSION 10MG/ML 100 ML ONE (08:04)
[2022-05-06] MEDS: NOREPINEPHRINE 8 MG/D5W 250 ML 250 ML IV SCH (08:45)
[2022-05-06] MEDS ORDERED: NOREPINEPHRINE 8 MG/D5W 250 ML 250 ML ONE (08:46)
[2022-05-06] MEDS ORDERED: SODIUM BICARBONATE 8.4% SYRING 100 ML ONE (08:50)
[2022-05-06] MEDS ORDERED: DEXTROSE 5% 1,000 ML IV ONE (08:56)
[2022-05-06 09:01] LABS: ABG HCO3 12 mmol/L (22-26); ABG PCO2 30 mmHg (35-45); ABG PH 7.22 (7.35-7.45); ABG PO2 116 mmHg (80-105); ABG TCO2 13
[2022-05-06] MEDS ORDERED: SODIUM BICARBONATE 8.4% SYRING 50 ML ONE (09:02)
[2022-05-06] MEDS: SODIUM BICARBONATE 8.4% 150 ML in DEXTROSE 5% 1,000 ML IV SCH ×2 (09:09→18:39)
[2022-05-06] MEDS: FINASTERIDE 5 MG TAB PO SCH (10:57)
[2022-05-06] MEDS: TAMSULOSIN HCL 0.4 MG CAP PO SCH (10:57)
[2022-05-06 11:55] LABS: CLARITY,URINE HAZY (CLEAR); COLOR,URINE YELLOW (YELLOW); KETONES,URINE NEGATIVE (NEGATIVE); LEUKOCYTE ESTERASE ,URINE LARGE (NEGATIVE); NITRITE,URINE NEGATIVE (NEGATIVE); PROTEIN,URINE DIPSTICK 1+ (NEGATIVE); URINE UROBILINOGEN 0.2 mg/dL (0.2 - 1)
[2022-05-06 12:07] LABS: BACTERIA,URINE MODERATE /HPF; WBC,URINE (MAN) 21-50 /HPF (0-5); YEAST,URINE FEW
[2022-05-06 12:31] LABS: CREATININE, SERUM 3.68 mg/dL (0.72-1.25)
[2022-05-06] MEDS: INSULIN REGULAR, HUMAN 100 UNIT/1 ML SQ SCH ×4 (12:46→21:33)
[2022-05-06] MEDS: PROPOFOL IV EMULSION 10MG/ML 100 ML IV PRN ×2 (13:53→22:55)
[2022-05-06] MEDS ORDERED: WATER STERILE 10 ML VIAL ONE (15:18)
[2022-05-06] MEDS ORDERED: VECURONIUM BROMIDE FOR INJ 20 MG VIAL ONE (15:18)
[2022-05-06] MEDS ORDERED: SUCCINYLCHOLINE CHLORIDE 20 MG/ML 10ML VIAL ONE (15:18)
[2022-05-06] MEDS ORDERED: ETOMIDATE 2 MG/ML 10 ML INJ IV ONE (15:18)
[2022-05-06] MEDS: INSULIN GLARGINE 100 UNITS/ML VIAL SC SCH (21:33)
[2022-05-07] VITALS (59 sets, daily range): BP systolic 91–161; BP diastolic 42–118
[2022-05-07] MEDS: IPRATROPIUM BROMIDE 0.02% 2.5 ML NEB NEB SCH ×6 (03:01→23:15)
[2022-05-07] MEDS ORDERED: FLUCONAZOLE 100 MG/NS 50 ML 50 ML IV SCH (03:45)
[2022-05-07 05:54] LABS: BASOPHILS % 0.2 % (0.0-1.0); HEMATOCRIT 29.6 % (38.2-49.6); HEMOGLOBIN 9.8 g/dL (14.0-18.0); LYMPHOCYTES % 22.2 % (18.0-39.1); MEAN CORPUSCULAR HEMOGLOBIN 29.1 pg (28-32); MEAN CORPUSCULAR HGB CONC 33.1 g/dL (31-35); MEAN CORPUSCULAR VOLUME 87.8 fL (81-99); MONOCYTES # (AUTO) 1.4 (0.2-0.8); MONOCYTES % 9.9 % (4.4-11.3); NEUTROPHILS # (AUTO) 9.2 (2.1-6.9); NEUTROPHILS % 67.3 % (38.7-80.0); PLATELET COUNT 111 x10e3/uL (140-360); RED BLOOD COUNT 3.37 x10e6/uL (4.3-5.7); RED CELL DISTRIBUTION WIDTH 14.7 % (11.7-14.4)
[2022-05-07 06:17] LABS: ALBUMIN 2.3 g/dL (3.5-5.0); ALBUMIN/GLOBULIN RATIO 0.6 (0.8-2.0); ANION GAP 15.6 mmol/L (8-16); CALCIUM 8.9 mg/dL (8.4-10.2); CREATININE, SERUM 3.65 mg/dL (0.72-1.25); MAGNESIUM 1.9 MG/DL (1.3-2.1); PHOSPHORUS 3.4 MG/DL (2.3-4.7); POTASSIUM 3.6 mmol/L (3.5-5.1)
[2022-05-07] MEDS: INSULIN REGULAR, HUMAN 100 UNIT/1 ML SQ SCH ×4 (07:30→21:33)
[2022-05-07] MEDS: FLUCONAZOLE 100 MG/NS 50 ML 50 ML IV SCH (07:46)
[2022-05-07] MEDS: TAMSULOSIN HCL 0.4 MG CAP PO SCH (08:23)
[2022-05-07] MEDS: FINASTERIDE 5 MG TAB PO SCH (08:23)
[2022-05-07] MEDS: NOREPINEPHRINE 8 MG/D5W 250 ML 250 ML IV SCH (08:45)
[2022-05-07] MEDS: DEXTROSE 5% 1,000 ML IV SCH (08:56)
[2022-05-07 11:29] LABS: ABG HCO3 28 mmol/L (22-26); ABG PCO2 33 mmHg (35-45); ABG PH 7.55 (7.35-7.45); ABG PO2 185 mmHg (80-105); ABG TCO2 29
[2022-05-07] MEDS: INSULIN GLARGINE 100 UNITS/ML VIAL SC SCH (21:34)
[2022-05-08] VITALS (30 sets, daily range): BP systolic 108–156; BP diastolic 53–101
[2022-05-08] MEDS: IPRATROPIUM BROMIDE 0.02% 2.5 ML NEB NEB SCH ×6 (03:05→23:40)
[2022-05-08] MEDS: DEXTROSE 5% 1,000 ML IV SCH ×2 (05:04→20:23)
[2022-05-08 06:27] LABS: BASOPHILS % 0.2 % (0.0-1.0); HEMATOCRIT 30.7 % (38.2-49.6); HEMOGLOBIN 9.5 g/dL (14.0-18.0); LYMPHOCYTES # (AUTO) 2.5 (1.0-3.2); LYMPHOCYTES % 26.9 % (18.0-39.1); MEAN CORPUSCULAR HEMOGLOBIN 28.7 pg (28-32); MEAN CORPUSCULAR HGB CONC 30.9 g/dL (31-35); MEAN CORPUSCULAR VOLUME 92.7 fL (81-99); MONOCYTES # (AUTO) 0.9 (0.2-0.8); MONOCYTES % 9.9 % (4.4-11.3); NEUTROPHILS # (AUTO) 5.8 (2.1-6.9); NEUTROPHILS % 62.7 % (38.7-80.0); PLATELET COUNT 109 x10e3/uL (140-360); RED BLOOD COUNT 3.31 x10e6/uL (4.3-5.7); RED CELL DISTRIBUTION WIDTH 14.7 % (11.7-14.4)
[2022-05-08 06:51] LABS: ALBUMIN 2.2 g/dL (3.5-5.0); ALBUMIN/GLOBULIN RATIO 0.6 (0.8-2.0); ANION GAP 14.7 mmol/L (8-16); CALCIUM 8.8 mg/dL (8.4-10.2); CREATININE, SERUM 3.02 mg/dL (0.72-1.25); POTASSIUM 3.7 mmol/L (3.5-5.1)
[2022-05-08] MEDS: FLUCONAZOLE 100 MG/NS 50 ML 50 ML IV SCH (07:17)
[2022-05-08] MEDS: INSULIN REGULAR, HUMAN 100 UNIT/1 ML SQ SCH ×4 (07:30→20:26)
[2022-05-08] MEDS: TAMSULOSIN HCL 0.4 MG CAP PO SCH (08:21)
[2022-05-08] MEDS: FINASTERIDE 5 MG TAB PO SCH (08:21)
[2022-05-08] MEDS: BALSAM PERU/CASTOR OIL 60 GM OINT...G. TP SCH (08:22)
[2022-05-08] MEDS: HYDROCODONE/APAP 7.5MG-325MG 1 EA TAB PO PRN (15:30)
[2022-05-08] MEDS: INSULIN GLARGINE 100 UNITS/ML VIAL SC SCH (20:27)
[2022-05-09] VITALS (28 sets, daily range): BP systolic 103–150; BP diastolic 59–115
[2022-05-09] MEDS: HYDROCODONE/APAP 7.5MG-325MG 1 EA TAB PO PRN (01:18)
[2022-05-09] MEDS: IPRATROPIUM BROMIDE 0.02% 2.5 ML NEB NEB SCH ×6 (03:50→23:40)
[2022-05-09 06:49] LABS: BASOPHILS % 0.3 % (0.0-1.0); HEMATOCRIT 28.6 % (38.2-49.6); LYMPHOCYTES # (AUTO) 2.1 (1.0-3.2); MEAN CORPUSCULAR HEMOGLOBIN 29.1 pg (28-32); MEAN CORPUSCULAR HGB CONC 30.8 g/dL (31-35); MEAN CORPUSCULAR VOLUME 94.7 fL (81-99); MONOCYTES # (AUTO) 0.9 (0.2-0.8); MONOCYTES % 12.5 % (4.4-11.3); NEUTROPHILS # (AUTO) 3.9 (2.1-6.9); NEUTROPHILS % 56.9 % (38.7-80.0); RED BLOOD COUNT 3.02 x10e6/uL (4.3-5.7); RED CELL DISTRIBUTION WIDTH 14.4 % (11.7-14.4)
[2022-05-09 06:51] LABS: HEMOGLOBIN 8.8 g/dL (14.0-18.0); PLATELET COUNT 92 x10e3/uL (140-360)
[2022-05-09 07:19] LABS: ALBUMIN 2.1 g/dL (3.5-5.0); ALBUMIN/GLOBULIN RATIO 0.6 (0.8-2.0); ANION GAP 10.7 mmol/L (8-16); CALCIUM 8.3 mg/dL (8.4-10.2); CREATININE, SERUM 2.45 mg/dL (0.72-1.25); POTASSIUM 3.7 mmol/L (3.5-5.1)
[2022-05-09] MEDS: INSULIN REGULAR, HUMAN 100 UNIT/1 ML SQ SCH ×4 (07:30→21:04)
[2022-05-09] MEDS: DEXTROSE 5% 1,000 ML IV SCH (09:24)
[2022-05-09] MEDS: TAMSULOSIN HCL 0.4 MG CAP PO SCH (09:24)
[2022-05-09] MEDS: FINASTERIDE 5 MG TAB PO SCH (09:24)
[2022-05-09] MEDS: FLUCONAZOLE 100 MG/NS 50 ML 50 ML IV SCH (09:30)
[2022-05-09] MEDS ORDERED: IBUPROFEN 100 MG/5 ML SUSP PO ONE (10:00)
[2022-05-09] MEDS: BALSAM PERU/CASTOR OIL 60 GM OINT...G. TP SCH (10:20)
[2022-05-09] MEDS: INSULIN GLARGINE 100 UNITS/ML VIAL SC SCH (21:04)
[2022-05-10] VITALS (15 sets, daily range): BP systolic 117–156; BP diastolic 68–90
[2022-05-10] MEDS: IPRATROPIUM BROMIDE 0.02% 2.5 ML NEB NEB SCH ×2 (03:50→07:30)
[2022-05-10 06:29] LABS: BASOPHILS % 0.3 % (0.0-1.0); HEMATOCRIT 30.1 % (38.2-49.6); HEMOGLOBIN 9.5 g/dL (14.0-18.0); LYMPHOCYTES # (AUTO) 1.8 (1.0-3.2); LYMPHOCYTES % 28.2 % (18.0-39.1); MEAN CORPUSCULAR HEMOGLOBIN 28.8 pg (28-32); MEAN CORPUSCULAR HGB CONC 31.6 g/dL (31-35); MEAN CORPUSCULAR VOLUME 91.2 fL (81-99); MONOCYTES # (AUTO) 0.7 (0.2-0.8); MONOCYTES % 11.3 % (4.4-11.3); NEUTROPHILS # (AUTO) 3.9 (2.1-6.9); NEUTROPHILS % 59.7 % (38.7-80.0); PLATELET COUNT 104 x10e3/uL (140-360); RED CELL DISTRIBUTION WIDTH 13.8 % (11.7-14.4)
[2022-05-10 06:53] LABS: ALBUMIN 2.1 g/dL (3.5-5.0); ALBUMIN/GLOBULIN RATIO 0.5 (0.8-2.0); ANION GAP 12.9 mmol/L (8-16); CALCIUM 8.8 mg/dL (8.4-10.2); CREATININE, SERUM 2.37 mg/dL (0.72-1.25); POTASSIUM 3.9 mmol/L (3.5-5.1)
[2022-05-10] MEDS: INSULIN REGULAR, HUMAN 100 UNIT/1 ML SQ SCH ×3 (07:30→16:30)
[2022-05-10] MEDS: TAMSULOSIN HCL 0.4 MG CAP PO SCH (08:57)
[2022-05-10] MEDS: FINASTERIDE 5 MG TAB PO SCH (08:57)
[2022-05-10] MEDS: FLUCONAZOLE 100 MG/NS 50 ML 50 ML IV SCH (09:00)
[2022-05-10] MEDS: BALSAM PERU/CASTOR OIL 60 GM OINT...G. TP SCH (09:01)
[2022-05-10] MEDS ORDERED: IPRATROPIUM BROMIDE 0.02% 2.5 ML NEB NEB PRN (10:45)
[2022-05-10] MEDS ORDERED: METHYLPREDNISOLONE SOD SUCC 125 MG/2ML VIAL IV SCH (11:00)
== END 2022-05-10 11:40 | disposition short-term general hospital (02) | DRG 871 ==
LOC: ER 09:16 → ERHOLD 11:58 → MED/SURG 15:21 → ICU 05-06 03:58
PROVIDERS: ADMIT Internal Medicine; ATTEND Internal Medicine
PROC: 3E03329 Introduction of Other Anti-infective into Peripheral Vein, Percutaneous Approach (ICD-10-PCS; principal; 2022-05-05)
PROC: 5A1945Z Respiratory Ventilation, 24-96 Consecutive Hours (ICD-10-PCS; 2022-05-06)
PROC: 0BH17EZ Insertion of Endotracheal Airway into Trachea, Via Natural or Artificial Opening (ICD-10-PCS; 2022-05-06)
PROC: 02HV33Z Insertion of Infusion Device into Superior Vena Cava, Percutaneous Approach (ICD-10-PCS; 2022-05-06)
PROC: 3E043XZ Introduction of Vasopressor into Central Vein, Percutaneous Approach (ICD-10-PCS; 2022-05-06)
PROC: 0T2BX0Z Change Drainage Device in Bladder, External Approach (ICD-10-PCS; 2022-05-10)
DX: A41.9 Sepsis, unspecified organism (principal); G93.41 Metabolic encephalopathy; N17.0 Acute kidney failure with tubular necrosis; I62.00 Nontraumatic subdural hemorrhage, unspecified; J96.01 Acute respiratory failure with hypoxia; J15.0 Pneumonia due to Klebsiella pneumoniae; T83.511A Infection and inflammatory reaction due to indwelling urethral catheter, initial encounter; N30.00 Acute cystitis without hematuria; N17.9 Acute kidney failure, unspecified; E44.0 Moderate protein-calorie malnutrition; N18.4 Chronic kidney disease, stage 4 (severe); E87.4 Mixed disorder of acid-base balance; E87.0 Hyperosmolality and hypernatremia; B37.49 Other urogenital candidiasis; Z16.12 Extended spectrum beta lactamase (ESBL) resistance; I12.9 Hypertensive chronic kidney disease with stage 1 through stage 4 chronic kidney disease, or unspecified chronic kidney disease; E11.22 Type 2 diabetes mellitus with diabetic chronic kidney disease; N40.0 Benign prostatic hyperplasia without lower urinary tract symptoms; I25.10 Atherosclerotic heart disease of native coronary artery without angina pectoris; E03.9 Hypothyroidism, unspecified; B96.4 Proteus (mirabilis) (morganii) as the cause of diseases classified elsewhere; E87.5 Hyperkalemia; Z95.5 Presence of coronary angioplasty implant and graft; Z88.8 Allergy status to other drugs, medicaments and biological substances; Z88.1 Allergy status to other antibiotic agents; Z91.041 Radiographic dye allergy status; Z79.82 Long term (current) use of aspirin; Z79.4 Long term (current) use of insulin; Z80.9 Family history of malignant neoplasm, unspecified; Z82.49 Family history of ischemic heart disease and other diseases of the circulatory system; Z86.16 Personal history of COVID-19; Z96.652 Presence of left artificial knee joint; D63.8 Anemia in other chronic diseases classified elsewhere; I44.0 Atrioventricular block, first degree; S52.121A Displaced fracture of head of right radius, initial encounter for closed fracture; F03.90 Unspecified dementia, unspecified severity, without behavioral disturbance, psychotic disturbance, mood disturbance, and anxiety; E11.42 Type 2 diabetes mellitus with diabetic polyneuropathy; G72.9 Myopathy, unspecified; M62.81 Muscle weakness (generalized); M10.9 Gout, unspecified; Z74.01 Bed confinement status; Z20.822 Contact with and (suspected) exposure to COVID-19
CPT/HCPCS: 0223U; 31500; 36415; 36600; 51700; 70450; 71045; 72125; 74018; 74230; 80048; 80053; 81001; 82550; 82553; 82805; 82948; 83605; 83735; 84100; 84484; 84550; 85025; 85610; 85730; 87040; 87070; 87086; 87186; 87205; 93005; 94002; 94003; 94640; 94799; 96372; 99251; 99284; J0330; J0456; J0696; J1450; J1815; J1817; J2185; J2930; J7030; J7050; J7070; J7799